=== PATIENT | male | born 1950 | race Caucasian/White ===

== ENCOUNTER 2017-10-28 00:05 | Emergency (ER) | payer MEDICARE, MEDICAID ==
[~2017-10-28] VITALS: Ht 180.3 cm; Wt 78.0 kg
[~2017-10-28 00:05] MED LIST: AMAN100C16 MT; ASCO-339 MT; ASPI-1158 MT; BENZ1TAB7 MT; CARB1TAB5 PO; FERR324T4 MT; METF500T6 PO; QUET25TA MT; [UNRECOGNIZED DRUG - CODE] MT
[2017-10-28 02:26] LABS: CHLORIDE 97 mEq/L (98-107); HEMOGLOBIN. 12.5 g/dL (14.0-18.0); MEAN CORPUSCULAR HEMOGLOBIN 27.9 pg (28.0-32.0); MEAN CORPUSCULAR VOLUME 84.9 fL (80.0-94.0); MEAN PLATELET VOLUME 10.6 fl (7.4-10.4); PLATELET 202 x1000/uL (130-400); RED BLOOD CELL COUNT 4.47 mill/uL (4.7-6.1); RED CELL DISTRIBUTION WIDTH 17.8 % (11.6-14.6)
[2017-10-28 02:30] LABS: ETHANOL BLOOD < 10 mg/dL; INR 1.1; PROTHROMBIN TIME 11.2 sec (9.1-11.1)
[2017-10-28 03:28] LABS: CLARITY URINE CLEAR (CLEAR); COLOR URINE DARK YELLOW (YELLOW); KETONES URINE TRACE (NEGATIVE); LEUKOCYTE ESTERASE URINE NEGATIVE (NEGATIVE); NITRITE URINE NEGATIVE (NEGATIVE); OCCULT BLOOD URINE NEGATIVE (NEGATIVE); PROTEIN URINE NEGATIVE (NEGATIVE); SPECIFIC GRAVITY URINE 1.012 (1.005-1.030); UROBILINOGEN URINE 0.2 E.U./dL (0.2-1.0)
[2017-10-28 03:44] LABS: *AMPHETAMINES SCREEN URINE NEGATIVE (NEGATIVE); *BARBITURATES SCREEN URINE NEGATIVE (NEGATIVE); *BENZODIAZEPINES SCREEN URINE NEGATIVE (NEGATIVE)
[2017-10-28 03:45] LABS: *COCAINE SCREEN URINE NEGATIVE (NEGATIVE); CANNABINOID URINE SCREEN NEGATIVE (NEGATIVE); OPIATES URINE SCREEN NEGATIVE (NEGATIVE); PHENCYCLIDINE URINE SCREEN NEGATIVE (NEGATIVE)
[2017-10-28 03:48] LABS: METHADONE URINE SCREEN NEGATIVE (NEGATIVE)
[2017-10-28 04:50] LABS: PLATELET ESTIMATE NORMAL
[2017-10-28] MEDS: ENTACAPONE 200MG TABLET PO SCH ×3 (06:47→14:03)
[2017-10-28] MEDS: CARBIDOPA/LEVODOPA 25/100MG TABLET PO SCH ×3 (06:48→14:04)
[2017-10-28 14:36] VITALS: BP 128/67
== END 2017-10-28 14:44 | disposition home or self-care (01) ==
LOC: ER 00:05
DX: T42.4X1A Poisoning by benzodiazepines, accidental (unintentional), initial encounter (principal); R45.1 Restlessness and agitation; D72.829 Elevated white blood cell count, unspecified; G20 Parkinson's disease; E11.9 Type 2 diabetes mellitus without complications; Z88.6 Allergy status to analgesic agent; Z98.890 Other specified postprocedural states; Y92.128 Other place in nursing home as the place of occurrence of the external cause
CPT/HCPCS: 36415; 80053; 80305; 80307; 80329; 81003; 83690; 85025; 85610; 85730; 93005; 99285; G0482

== ENCOUNTER 2017-12-10 14:07 | Inpatient (IN) | payer MEDICARE, MEDICAID ==
[~2017-12-10] VITALS: Ht 180.3 cm; Wt 81.6 kg
[~2017-12-10 14:07] MED LIST changes: +METF-414 PO; -METF500T6 PO
[2017-12-10] MEDS ORDERED: CARBIDOPA/LEVODOPA 25/100MG TABLET PO ONE (15:30)
[2017-12-10] MEDS ORDERED: ENTACAPONE 200MG TABLET PO ONE ×2 (15:30→19:45)
[2017-12-10] MEDS ORDERED: ONDANSETRON HCL 4MG/2ML INJ IV STA (15:44)
[2017-12-10 15:57] LABS: HEMATOCRIT. 35.8 % (42.0-52.0); HEMOGLOBIN. 11.6 g/dL (14.0-18.0); MEAN CORPUSCULAR HEMOGLOBIN 27.8 pg (28.0-32.0); MEAN CORPUSCULAR VOLUME 86.3 fL (80.0-94.0); MEAN PLATELET VOLUME 11.2 fl (7.4-10.4); PLATELET 195 x1000/uL (130-400); RED BLOOD CELL COUNT 4.15 mill/uL (4.7-6.1); RED CELL DISTRIBUTION WIDTH 15.7 % (11.6-14.6)
[2017-12-10 16:01] LABS: CHLORIDE 102 mEq/L (98-107)
[2017-12-10 16:23] LABS: PLATELET ESTIMATE NORMAL
[2017-12-10] MEDS ORDERED: SODIUM CHLORIDE 0.9% 1,000 ML IV ONE (17:43)
[2017-12-10] MEDS ORDERED: ONDANSETRON HCL 4MG/2ML INJ IV ONE (17:45)
[2017-12-10] MEDS ORDERED: CARBIDOPA/LEVODOPA 10/100MG TABLET PO ONE ×2 (19:45→20:15)
[2017-12-10 23:12] VITALS: BP 128/66
[2017-12-10 23:30] VITALS: BP 128/66
[2017-12-11] MEDS ORDERED: ONDANSETRON HCL 4MG/2ML INJ IV PRN (01:15)
[2017-12-11] MEDS ORDERED: CLONIDINE 0.1MG TABLET PO PRN (01:15)
[2017-12-11] MEDS ORDERED: GUAIFENESIN 200MG/10ML SUGAR FREE UDC PO PRN (01:15)
[2017-12-11] MEDS ORDERED: LORAZEPAM 0.5MG TABLET PO PRN (01:15)
[2017-12-11] MEDS ORDERED: MAGNESIUM/ALUMINUM HYDROXIDE/SIMETHICONE 30ML UDC PO PRN (01:15)
[2017-12-11] MEDS ORDERED: ACETAMINOPHEN 325MG TABLET PO PRN (01:15)
[2017-12-11 04:00] VITALS: BP 142/92
[2017-12-11] MEDS: CARBIDOPA/LEVODOPA 25/100MG TABLET CR PO SCH ×6 (04:07→21:14)
[2017-12-11] MEDS: ENTACAPONE 200MG TABLET PO SCH ×6 (04:07→21:20)
[2017-12-11] MEDS: SODIUM CHLORIDE 0.9% INJ 3ML FLUSH IVF SCH ×3 (04:08→20:12)
[2017-12-11 08:00] VITALS: BP 153/61
[2017-12-11] MEDS: FAMOTIDINE 20MG TABLET PO SCH ×2 (09:57→20:12)
[2017-12-11] MEDS: ENOXAPARIN 40MG/0.4ML SYR SUBCUT SCH (09:58)
[2017-12-11] MEDS ORDERED: INFLUENZA VIRUS VACCINE(AFLURIA) 0.5ML SYR IM ONE (10:00)
[2017-12-11 12:00] VITALS: BP 133/56
[2017-12-11] MEDS ORDERED: CARVEDILOL 6.25 MG TABLET PO NR (13:15)
[2017-12-11 16:00] VITALS: BP 133/78
[2017-12-11] MEDS: NYSTATIN POWDER 15GM TOP SCH ×2 (16:56→17:00)
[2017-12-11 19:34] VITALS: BP 112/58
[2017-12-11] MEDS: CARVEDILOL 6.25 MG TABLET PO SCH (20:12)
[2017-12-11] MEDS ORDERED: QUETIAPINE FUMARATE 25MG TABLET PO SCH (21:00)
[2017-12-11 23:28] VITALS: BP 122/65
[2017-12-12] MEDS: CARBIDOPA/LEVODOPA 25/100MG TABLET CR PO SCH ×4 (04:22→14:46)
[2017-12-12] MEDS: ENTACAPONE 200MG TABLET PO SCH ×4 (04:22→14:46)
[2017-12-12 04:36] VITALS: BP 154/76
[2017-12-12] MEDS: SODIUM CHLORIDE 0.9% INJ 3ML FLUSH IVF SCH (05:51)
[2017-12-12 07:06] LABS: HEMATOCRIT. 34.6 % (42.0-52.0); MEAN CORPUSCULAR HEMOGLOBIN 27.5 pg (28.0-32.0); MEAN CORPUSCULAR VOLUME 86.3 fL (80.0-94.0); MEAN PLATELET VOLUME 11.7 fl (7.4-10.4); PLATELET 179 x1000/uL (130-400); RED CELL DISTRIBUTION WIDTH 15.5 % (11.6-14.6)
[2017-12-12 07:17] LABS: CHLORIDE 103 mEq/L (98-107)
[2017-12-12] MEDS: CARVEDILOL 6.25 MG TABLET PO SCH (08:51)
[2017-12-12] MEDS: FAMOTIDINE 20MG TABLET PO SCH (08:51)
[2017-12-12] MEDS: ENOXAPARIN 40MG/0.4ML SYR SUBCUT SCH (08:52)
[2017-12-12] MEDS: NYSTATIN POWDER 15GM TOP SCH (08:52)
[2017-12-12] MEDS ORDERED: AMLODIPINE 5MG TABLET PO SCH (09:00)
[2017-12-12] MEDS: BLOOD SUGAR DIAGNOSTIC STRIP TEST SCH ×2 (09:12→12:20)
[2017-12-12] MEDS: INSULIN LISPRO 100 UNITS/ML SUBCUT SCH ×2 (09:13→15:00)
[2017-12-12] MEDS ORDERED: DEXTROSE 50% WATER 50ML SYRINGE IV PRN (09:15)
[2017-12-12 12:00] VITALS: BP 115/96
[2017-12-12 15:53] VITALS: BP 115/61
[2017-12-12 16:00] VITALS: BP 124/56
[2017-12-12 16:21] LABS: PLATELET ESTIMATE NORMAL
== END 2017-12-12 18:55 | disposition home or self-care (01) | DRG 206 ==
LOC: ER 14:07 → 6WST 19:27 → EDBEDREQ 19:28 → EDBEDREQTM 19:28 → ENRESERV 21:30
PROVIDERS: ADMIT Internal Medicine; ATTEND Internal Medicine
PROC: 0HDMXZZ Extraction of Right Foot Skin, External Approach (ICD-10-PCS; principal; 2017-12-11)
DX: M94.0 Chondrocostal junction syndrome [Tietze] (principal); I50.20 Unspecified systolic (congestive) heart failure; E11.621 Type 2 diabetes mellitus with foot ulcer; I11.0 Hypertensive heart disease with heart failure; G20 Parkinson's disease; I25.10 Atherosclerotic heart disease of native coronary artery without angina pectoris; M19.90 Unspecified osteoarthritis, unspecified site; B35.9 Dermatophytosis, unspecified; L84 Corns and callosities; L97.529 Non-pressure chronic ulcer of other part of left foot with unspecified severity; M20.40 Other hammer toe(s) (acquired), unspecified foot; L57.0 Actinic keratosis; Z82.49 Family history of ischemic heart disease and other diseases of the circulatory system; I25.2 Old myocardial infarction; Z79.899 Other long term (current) drug therapy; Z85.038 Personal history of other malignant neoplasm of large intestine; Z83.3 Family history of diabetes mellitus; Z86.73 Personal history of transient ischemic attack (TIA), and cerebral infarction without residual deficits; Z90.49 Acquired absence of other specified parts of digestive tract; Z95.1 Presence of aortocoronary bypass graft; Z95.5 Presence of coronary angioplasty implant and graft; Z79.84 Long term (current) use of oral hypoglycemic drugs; Z79.82 Long term (current) use of aspirin
CPT/HCPCS: 36415; 71045; 74176; 80048; 82962; 84134; 84484; 90686; 93005; 96361; 96374; 96376; 99285; J1650; J1815; J2405; J7030

== ENCOUNTER 2018-03-16 02:29 | Inpatient (IN) | payer MEDICARE, MEDICAID ==
[~2018-03-16] VITALS: Ht 180.3 cm; Wt 76.2 kg
[2018-03-16] MEDS ORDERED: ASPIRIN 81MG TABLET PO ONE (03:45)
[2018-03-16] MEDS ORDERED: NITROGLYCERIN 0.4MG TABLET SL SL PRN (03:45)
[2018-03-16 04:53] LABS: HEMATOCRIT. 30.6 % (42.0-52.0); HEMOGLOBIN. 9.4 g/dL (14.0-18.0); MEAN CORPUSCULAR HEMOGLOBIN 24.4 pg (28.0-32.0); MEAN CORPUSCULAR VOLUME 79.5 fL (80.0-94.0); PLATELET 199 x1000/uL (130-400); RED BLOOD CELL COUNT 3.85 mill/uL (4.7-6.1); RED CELL DISTRIBUTION WIDTH 17.8 % (11.6-14.6)
[2018-03-16] MEDS ORDERED: ENTACAPONE 200MG TABLET PO ONE (05:00)
[2018-03-16] MEDS ORDERED: CARBIDOPA/LEVODOPA 10/100MG TABLET PO ONE (05:00)
[2018-03-16 05:01] LABS: CHLORIDE 106 mEq/L (98-107)
[2018-03-16 05:08] LABS: *AMPHETAMINES SCREEN URINE NEGATIVE (NEGATIVE); *BARBITURATES SCREEN URINE NEGATIVE (NEGATIVE); *BENZODIAZEPINES SCREEN URINE NEGATIVE (NEGATIVE); *COCAINE SCREEN URINE NEGATIVE (NEGATIVE); METHADONE URINE SCREEN NEGATIVE (NEGATIVE); OPIATES URINE SCREEN NEGATIVE (NEGATIVE); PHENCYCLIDINE URINE SCREEN NEGATIVE (NEGATIVE)
[2018-03-16 05:09] LABS: CANNABINOID URINE SCREEN NEGATIVE (NEGATIVE)
[2018-03-16 05:30] LABS: D-DIMER 0.7 mg/L FEU (<0.50); INR 1.1; PARTIAL THROMBOPLASTIN TIME 29.1 sec (23.4-31.0); PROTHROMBIN TIME 10.6 sec (9.1-11.1)
[2018-03-16] MEDS ORDERED: CARBIDOPA/LEVODOPA 25/100MG TABLET PO NR (05:30)
[2018-03-16] MEDS ORDERED: IOHEXOL-350 100 ML BOTTLE ONE (07:00)
[2018-03-16 07:13] LABS: PLATELET ESTIMATE NORMAL
[2018-03-16 09:33] VITALS: BP 122/51
[2018-03-16] MEDS ORDERED: MAGNESIUM/ALUMINUM HYDROXIDE/SIMETHICONE 30ML UDC PO PRN (10:15)
[2018-03-16] MEDS ORDERED: DEXTROSE 50% WATER 50ML SYRINGE IV PRN (10:15)
[2018-03-16] MEDS ORDERED: DIPHENHYDRAMINE 50MG/ML VIAL IV PRN (10:15)
[2018-03-16] MEDS ORDERED: ONDANSETRON HCL 4MG/2ML INJ IV PRN (10:15)
[2018-03-16] MEDS ORDERED: CLONIDINE 0.1MG TABLET PO PRN (10:15)
[2018-03-16] MEDS ORDERED: GUAIFENESIN 200MG/10ML SUGAR FREE UDC PO PRN (10:15)
[2018-03-16] MEDS: CARBIDOPA/LEVODOPA 25/100MG TABLET PO SCH ×4 (10:44→20:42)
[2018-03-16] MEDS: ASCORBIC ACID 500 MG TABLET PO SCH ×2 (10:55→20:42)
[2018-03-16 12:00] VITALS: BP 98/42
[2018-03-16] MEDS: INSULIN LISPRO 100 UNITS/ML SUBCUT SCH ×3 (12:23→21:01)
[2018-03-16] MEDS: ENTACAPONE 200MG TABLET PO SCH ×4 (12:38→20:42)
[2018-03-16] MEDS: BLOOD SUGAR DIAGNOSTIC STRIP TEST SCH ×3 (12:38→20:57)
[2018-03-16] MEDS: SODIUM CHLORIDE 0.9% INJ 3ML FLUSH IVF SCH ×2 (13:13→21:02)
[2018-03-16 16:00] VITALS: BP 152/84
[2018-03-16] MEDS ORDERED: BENZTROPINE MESYLATE 1MG/1ML 2ML AMP IM SCH (17:00)
[2018-03-16] MEDS: METFORMIN HCL 500MG TABLET PO SCH ×2 (18:13→18:16)
[2018-03-16 20:00] VITALS: BP 117/32
[2018-03-16] MEDS: QUETIAPINE FUMARATE 25MG TABLET PO SCH (20:41)
[2018-03-16] MEDS: BENZTROPINE MESYLATE 1MG TABLET PO SCH (20:42)
[2018-03-16] MEDS ORDERED: NON FORMULARY PATIENT HOME MED PO SCH (21:30)
[2018-03-16] MEDS: AMANTADINE HCL 100 MG CAPSULE PO SCH (22:29)
[2018-03-17] VITALS (7 sets, daily range): BP systolic 100–133; BP diastolic 38–66
[2018-03-17] MEDS: CARBIDOPA/LEVODOPA 25/100MG TABLET PO SCH ×8 (00:13→21:01)
[2018-03-17] MEDS: ENTACAPONE 200MG TABLET PO SCH ×8 (00:17→21:01)
[2018-03-17] MEDS: SODIUM CHLORIDE 0.9% INJ 3ML FLUSH IVF SCH ×3 (06:03→22:00)
[2018-03-17] MEDS: BLOOD SUGAR DIAGNOSTIC STRIP TEST SCH ×4 (06:03→21:00)
[2018-03-17 08:03] LABS: HEMATOCRIT. 31.8 % (42.0-52.0); HEMOGLOBIN. 9.7 g/dL (14.0-18.0); MEAN CORPUSCULAR HEMOGLOBIN 24.1 pg (28.0-32.0); MEAN CORPUSCULAR VOLUME 78.8 fL (80.0-94.0); MEAN PLATELET VOLUME 11.7 fl (7.4-10.4); PLATELET 235 x1000/uL (130-400); RED BLOOD CELL COUNT 4.04 mill/uL (4.7-6.1); RED CELL DISTRIBUTION WIDTH 17.3 % (11.6-14.6)
[2018-03-17 08:17] LABS: CHLORIDE 103 mEq/L (98-107)
[2018-03-17] MEDS: AMANTADINE HCL 100 MG CAPSULE PO SCH ×3 (09:00→21:29)
[2018-03-17 10:04] LABS: CREATINE KINASE 49 IU/L (39-308)
[2018-03-17 10:05] LABS: CREATINE KINASE MB FRACTION 1.7 ng/mL (0.5-3.6)
[2018-03-17] MEDS: BENZTROPINE MESYLATE 1MG TABLET PO SCH ×2 (10:18→18:04)
[2018-03-17] MEDS: ASCORBIC ACID 500 MG TABLET PO SCH ×2 (10:18→21:02)
[2018-03-17] MEDS: ASPIRIN 81MG EC TABLET PO SCH (10:18)
[2018-03-17] MEDS: INSULIN LISPRO 100 UNITS/ML SUBCUT SCH ×4 (12:59→22:10)
[2018-03-17] MEDS ORDERED: REGADENOSON 0.4 MG/5 ML IV ONE (14:00)
[2018-03-17 16:15] LABS: PLATELET ESTIMATE NORMAL
[2018-03-17] MEDS: METFORMIN HCL 500MG TABLET PO SCH (17:50)
[2018-03-17] MEDS: ENOXAPARIN 80MG/0.8ML SYR SUBCUT SCH (21:03)
[2018-03-17] MEDS: QUETIAPINE FUMARATE 25MG TABLET PO SCH (21:14)
[2018-03-18 00:32] VITALS: BP 141/67
[2018-03-18] MEDS: ENTACAPONE 200MG TABLET PO SCH ×7 (03:08→17:45)
[2018-03-18] MEDS: CARBIDOPA/LEVODOPA 25/100MG TABLET PO SCH ×7 (03:09→17:45)
[2018-03-18 04:00] VITALS: BP 106/59
[2018-03-18] MEDS: SODIUM CHLORIDE 0.9% INJ 3ML FLUSH IVF SCH ×2 (06:00→13:21)
[2018-03-18] MEDS: BLOOD SUGAR DIAGNOSTIC STRIP TEST SCH ×3 (06:26→17:37)
[2018-03-18 07:14] LABS: HEMOGLOBIN. 9.6 g/dL (14.0-18.0); MEAN CORPUSCULAR HEMOGLOBIN 24.2 pg (28.0-32.0); MEAN CORPUSCULAR VOLUME 78.1 fL (80.0-94.0); MEAN PLATELET VOLUME 11.1 fl (7.4-10.4); PLATELET 232 x1000/uL (130-400); RED BLOOD CELL COUNT 3.97 mill/uL (4.7-6.1); RED CELL DISTRIBUTION WIDTH 16.9 % (11.6-14.6)
[2018-03-18] MEDS: METFORMIN HCL 500MG TABLET PO SCH ×2 (07:50→17:50)
[2018-03-18 08:00] VITALS: BP 105/55
[2018-03-18] MEDS ORDERED: REGADENOSON 0.4 MG/5 ML IV ONE (08:31)
[2018-03-18] MEDS: ENOXAPARIN 80MG/0.8ML SYR SUBCUT SCH ×2 (09:00→11:27)
[2018-03-18] MEDS: ASPIRIN 81MG EC TABLET PO SCH ×2 (09:00→11:26)
[2018-03-18] MEDS: BENZTROPINE MESYLATE 1MG TABLET PO SCH ×3 (09:00→17:45)
[2018-03-18] MEDS: ASCORBIC ACID 500 MG TABLET PO SCH ×2 (09:00→11:26)
[2018-03-18] MEDS: AMANTADINE HCL 100 MG CAPSULE PO SCH ×3 (11:37→18:36)
[2018-03-18 12:00] VITALS: BP 119/59
[2018-03-18 12:03] LABS: CHLORIDE 103 mEq/L (98-107)
[2018-03-18] MEDS: INSULIN LISPRO 100 UNITS/ML SUBCUT SCH ×2 (12:05→17:37)
[2018-03-18 16:00] VITALS: BP 122/60
[2018-03-18 18:57] LABS: PLATELET ESTIMATE NORMAL
[2018-03-18] MEDS ORDERED: ENOXAPARIN 80MG/0.8ML SYR SUBCUT SCH (21:00)
== END 2018-03-18 20:35 | disposition home or self-care (01) | DRG 206 ==
LOC: ER 02:29 → 7WST 05:49 → EDBEDREQ 05:50 → ENRESERV 07:57 → 6WST 03-17 07:54
PROVIDERS: ADMIT Internal Medicine; ATTEND Internal Medicine
DX: M94.0 Chondrocostal junction syndrome [Tietze] (principal); L97.528 Non-pressure chronic ulcer of other part of left foot with other specified severity; E44.0 Moderate protein-calorie malnutrition; I25.10 Atherosclerotic heart disease of native coronary artery without angina pectoris; I50.9 Heart failure, unspecified; G20 Parkinson's disease; I25.2 Old myocardial infarction; Z85.038 Personal history of other malignant neoplasm of large intestine; E11.9 Type 2 diabetes mellitus without complications; E78.00 Pure hypercholesterolemia, unspecified; I11.0 Hypertensive heart disease with heart failure; Z86.73 Personal history of transient ischemic attack (TIA), and cerebral infarction without residual deficits; G25.0 Essential tremor; I25.5 Ischemic cardiomyopathy; E11.42 Type 2 diabetes mellitus with diabetic polyneuropathy; E11.621 Type 2 diabetes mellitus with foot ulcer; Z86.718 Personal history of other venous thrombosis and embolism; Z83.3 Family history of diabetes mellitus; L08.9 Local infection of the skin and subcutaneous tissue, unspecified; M20.42 Other hammer toe(s) (acquired), left foot; Z88.5 Allergy status to narcotic agent; Z95.5 Presence of coronary angioplasty implant and graft; Z90.49 Acquired absence of other specified parts of digestive tract; Z79.84 Long term (current) use of oral hypoglycemic drugs
CPT/HCPCS: 36415; 71045; 71275; 73660; 78452; 80048; 80305; 82550; 82553; 82962; 83735; 83880; 84443; 84484; 85379; 93005; 93017; 93306; 93923; 93970; 96374; 99285; A9500; J0515; J1650; J1815; J2785; Q9967

== ENCOUNTER 2018-06-11 20:21 | Inpatient (IN) | payer MEDICARE, MEDICAID ==
[~2018-06-11] VITALS: Ht 180.3 cm; Wt 78.9 kg
[2018-06-11] MEDS ORDERED: ASPIRIN 81MG TABLET PO ONE (21:15)
[2018-06-11 21:53] LABS: HEMATOCRIT. 36.5 % (42.0-52.0); HEMOGLOBIN. 11.4 g/dL (14.0-18.0); MEAN CORPUSCULAR HEMOGLOBIN 24.8 pg (28.0-32.0); MEAN CORPUSCULAR VOLUME 79.4 fL (80.0-94.0); MEAN PLATELET VOLUME 10.5 fl (7.4-10.4); PLATELET 188 x1000/uL (130-400); RED BLOOD CELL COUNT 4.59 mill/uL (4.7-6.1); RED CELL DISTRIBUTION WIDTH 18.6 % (11.6-14.6)
[2018-06-11 21:55] LABS: CHLORIDE 104 mEq/L (98-107)
[2018-06-11 21:56] LABS: INR 1.1; PROTHROMBIN TIME 10.8 sec (9.6-11.0)
[2018-06-11] MEDS ORDERED: ENTACAPONE 200MG TABLET PO ONE (22:00)
[2018-06-11] MEDS ORDERED: CARBIDOPA/LEVODOPA 25/100MG TABLET PO ONE ×2 (22:00→22:30)
[2018-06-11] MEDS ORDERED: BENZTROPINE MESYLATE 1MG TABLET PO ONE (22:00)
[2018-06-11 22:08] LABS: PLATELET ESTIMATE NORMAL
[2018-06-12] VITALS (9 sets, daily range): BP systolic 113–145; BP diastolic 61–101
[2018-06-12] MEDS ORDERED: LORAZEPAM 2MG/ML CPJ IV PRN
[2018-06-12] MEDS ORDERED: DIPHENHYDRAMINE 50MG/ML VIAL IV PRN
[2018-06-12] MEDS ORDERED: MAGNESIUM/ALUMINUM HYDROXIDE/SIMETHICONE 30ML UDC PO PRN
[2018-06-12] MEDS ORDERED: IPRATROPIUM/ALBUTEROL 0.5-3(2.5)MG/3ML NEB INH PRN
[2018-06-12] MEDS ORDERED: CLONIDINE 0.1MG TABLET PO PRN
[2018-06-12] MEDS ORDERED: DEXTROSE 50% WATER 50ML SYRINGE IV PRN
[2018-06-12] MEDS ORDERED: SODIUM CHLORIDE 0.9% 1,000 ML IV SCH (01:00)
[2018-06-12] MEDS: CARBIDOPA/LEVODOPA 10/100MG TABLET PO SCH ×7 (02:00→22:52)
[2018-06-12] MEDS: ENTACAPONE 200MG TABLET PO SCH ×7 (02:00→22:53)
[2018-06-12] MEDS: PANTOPRAZOLE SODIUM 40 MG/VIAL IV SCH ×2 (05:19→16:55)
[2018-06-12] MEDS: BLOOD SUGAR DIAGNOSTIC STRIP TEST SCH ×4 (06:37→20:53)
[2018-06-12] MEDS: INSULIN LISPRO 100 UNITS/ML SUBCUT SCH ×4 (06:48→20:56)
[2018-06-12 07:30] LABS: HEMATOCRIT 35.8 % (42.0-52.0); HEMOGLOBIN 10.9 g/dL (14.0-18.0); MEAN CORPUSCULAR HEMOGLOBIN 24.5 pg (28.0-32.0); MEAN CORPUSCULAR VOLUME 80.5 fL (80.0-94.0); PLATELET 165 x1000/uL (130-400); RED BLOOD CELL COUNT 4.45 mill/uL (4.7-6.1); RED CELL DISTRIBUTION WIDTH 18.6 % (11.6-14.6)
[2018-06-12] MEDS: BENZTROPINE MESYLATE 1MG TABLET PO SCH ×2 (08:17→20:57)
[2018-06-12] MEDS: SODIUM CHLORIDE 0.45% 1,000 ML IV SCH ×2 (10:35→22:54)
[2018-06-12] MEDS ORDERED: PNEUMOCOCCAL 23-VAL P-SAC VAC 0.5 ML IM ONE (12:00)
[2018-06-12] MEDS ORDERED: INFLUENZA VIRUS VACCINE(AFLURIA) 0.5ML SYR IM ONE (12:00)
[2018-06-12] MEDS ORDERED: IODIXANOL 320MG/ML 100 ML BOTTLE IV ONE (13:44)
[2018-06-12] MEDS ORDERED: LIDOCAINE HCL 1% 20ML VIAL (Pyxis) INJ ONE (13:46)
[2018-06-12] MEDS ORDERED: MIDAZOLAM HCL 2 MG/2 ML VIAL ONE (14:03)
[2018-06-12] MEDS ORDERED: FENTANYL CITRATE/PF 50MCG/ML 2ML VIAL ONE (14:03)
[2018-06-12] MEDS ORDERED: ACETAMINOPHEN 325MG TABLET PO PRN (15:00)
[2018-06-12] MEDS ORDERED: ATROPINE SULFATE 1MG/10ML SYR IV PRN (15:00)
[2018-06-12] MEDS ORDERED: ONDANSETRON HCL 4MG/2ML INJ IV PRN ×2 (15:00)
[2018-06-12] MEDS: NEOMY SULF/BACITRAC ZN/POLY OINT 28GM TOP SCH (19:42)
[2018-06-12] MEDS ORDERED: QUETIAPINE FUMARATE 25MG TABLET PO SCH (21:00)
[2018-06-13] VITALS (11 sets, daily range): BP systolic 110–169; BP diastolic 42–105
[2018-06-13] MEDS: ENTACAPONE 200MG TABLET PO SCH ×6 (02:42→17:49)
[2018-06-13] MEDS: CARBIDOPA/LEVODOPA 10/100MG TABLET PO SCH ×6 (02:42→17:49)
[2018-06-13] MEDS: PANTOPRAZOLE SODIUM 40 MG/VIAL IV SCH (05:10)
[2018-06-13] MEDS: BLOOD SUGAR DIAGNOSTIC STRIP TEST SCH ×3 (07:09→17:49)
[2018-06-13] MEDS: BENZTROPINE MESYLATE 1MG TABLET PO SCH (08:08)
[2018-06-13] MEDS: INSULIN LISPRO 100 UNITS/ML SUBCUT SCH ×3 (08:09→17:50)
[2018-06-13] MEDS: NEOMY SULF/BACITRAC ZN/POLY OINT 28GM TOP SCH (09:53)
[2018-06-13 10:29] LABS: HEMATOCRIT. 34.3 % (42.0-52.0); HEMOGLOBIN. 10.7 g/dL (14.0-18.0); MEAN CORPUSCULAR HEMOGLOBIN 24.9 pg (28.0-32.0); MEAN CORPUSCULAR VOLUME 79.9 fL (80.0-94.0); MEAN PLATELET VOLUME 11.8 fl (7.4-10.4); PLATELET 171 x1000/uL (130-400); RED CELL DISTRIBUTION WIDTH 18.6 % (11.6-14.6)
[2018-06-13 10:47] LABS: CHLORIDE 104 mEq/L (98-107)
[2018-06-13 11:01] LABS: PLATELET ESTIMATE NORMAL
[2018-06-13] MEDS: SODIUM CHLORIDE 0.45% 1,000 ML IV SCH (12:05)
[2018-06-13] MEDS ORDERED: PANTOPRAZOLE 40MG DR TABLET PO SCH (17:30)
[2018-06-13] MEDS ORDERED: METOPROLOL TARTRATE 25MG TABLET PO SCH (21:00)
[2018-06-13] MEDS ORDERED: ATORVASTATIN CALCIUM 40MG TABLET PO SCH (21:00)
[2018-06-14] MEDS ORDERED: FAMOTIDINE 20MG TABLET PO SCH (09:00)
== END 2018-06-13 19:26 | disposition home health service (06) | DRG 287 ==
LOC: ER 20:21 → EDBEDREQTM 22:41 → EDBEDREQ 22:41 → ENRESERV 23:41 → 8WST 06-12 00:39 → 3WST 06-12 15:27
PROVIDERS: ADMIT Internal Medicine; ATTEND Internal Medicine
PROC: 4A023N7 Measurement of Cardiac Sampling and Pressure, Left Heart, Percutaneous Approach (ICD-10-PCS; principal; 2018-06-12)
PROC: B2111ZZ Fluoroscopy of Multiple Coronary Arteries using Low Osmolar Contrast (ICD-10-PCS; 2018-06-12)
PROC: B2151ZZ Fluoroscopy of Left Heart using Low Osmolar Contrast (ICD-10-PCS; 2018-06-12)
DX: I25.110 Atherosclerotic heart disease of native coronary artery with unstable angina pectoris (principal); E11.42 Type 2 diabetes mellitus with diabetic polyneuropathy; E11.621 Type 2 diabetes mellitus with foot ulcer; E78.5 Hyperlipidemia, unspecified; G20 Parkinson's disease; I11.9 Hypertensive heart disease without heart failure; K52.9 Noninfective gastroenteritis and colitis, unspecified; L97.529 Non-pressure chronic ulcer of other part of left foot with unspecified severity; M20.42 Other hammer toe(s) (acquired), left foot; M20.41 Other hammer toe(s) (acquired), right foot; I25.2 Old myocardial infarction; Z79.4 Long term (current) use of insulin; Z79.82 Long term (current) use of aspirin; Z85.038 Personal history of other malignant neoplasm of large intestine; Z86.73 Personal history of transient ischemic attack (TIA), and cerebral infarction without residual deficits; Z90.49 Acquired absence of other specified parts of digestive tract; Z95.5 Presence of coronary angioplasty implant and graft; Z88.8 Allergy status to other drugs, medicaments and biological substances; Z79.84 Long term (current) use of oral hypoglycemic drugs; Z79.899 Other long term (current) drug therapy; Z82.49 Family history of ischemic heart disease and other diseases of the circulatory system; Z83.3 Family history of diabetes mellitus
CPT/HCPCS: 36415; 71045; 80048; 82962; 83036; 83735; 83880; 84484; 85027; 90686; 90732; 93005; 93458; 93970; 96374; 99285; C1760; C1769; C1887; C1893; C9113; J1644; J1815; J2060; J2250; J2405; J3010; J3490; J7040; Q9967

== ENCOUNTER 2018-09-07 21:14 | Inpatient (IN) | payer MEDICARE, MEDICAID ==
[~2018-09-07] VITALS: Ht 182.9 cm; Wt 75.3 kg
[2018-09-07 22:49] LABS: HEMATOCRIT. 30.8 % (42.0-52.0); HEMOGLOBIN. 9.4 g/dL (14.0-18.0); MEAN CORPUSCULAR HEMOGLOBIN 24.8 pg (28.0-32.0); MEAN CORPUSCULAR VOLUME 80.9 fL (80.0-94.0); MEAN PLATELET VOLUME 11.7 fl (7.4-10.4); PLATELET 223 x1000/uL (130-400); RED BLOOD CELL COUNT 3.81 mill/uL (4.7-6.1); RED CELL DISTRIBUTION WIDTH 17.4 % (11.6-14.6)
[2018-09-07 22:54] LABS: CHLORIDE 105 mEq/L (98-107)
[2018-09-07 22:57] LABS: PARTIAL THROMBOPLASTIN TIME 21.9 sec (23.4-31.0); PROTHROMBIN TIME 10.7 sec (9.6-11.0)
[2018-09-08 00:23] LABS: CLARITY URINE CLEAR (CLEAR); COLOR URINE YELLOW (YELLOW); KETONES URINE NEGATIVE (NEGATIVE); LEUKOCYTE ESTERASE URINE NEGATIVE (NEGATIVE); NITRITE URINE NEGATIVE (NEGATIVE); OCCULT BLOOD URINE 3+ (NEGATIVE); PROTEIN URINE NEGATIVE (NEGATIVE); SPECIFIC GRAVITY URINE 1.016 (1.005-1.030); UROBILINOGEN URINE 0.2 E.U./dL (0.2-1.0)
[2018-09-08 04:15] LABS: PLATELET ESTIMATE NORMAL
[2018-09-08 09:50] VITALS: BP 128/73
[2018-09-08] MEDS ORDERED: IBUP-2030 MT (10:30)
[2018-09-08] MEDS ORDERED: METO25TA6 MT (10:30)
[2018-09-08] MEDS ORDERED: ATOR40TA70 MT (10:30)
[2018-09-08] MEDS ORDERED: OMEP20TA2 MT (10:33)
[2018-09-08] MEDS ORDERED: FOLI-43 MT (10:33)
[2018-09-08] MEDS ORDERED: DEXTROSE 50% WATER 50ML SYRINGE IV PRN (11:00)
[2018-09-08] MEDS ORDERED: CARBIDOPA/LEVODOPA 25/100MG TABLET CR PO SCH (11:00)
[2018-09-08] MEDS ORDERED: MEDICATION NOT ON FORMULARY EA (Ibuprofen 1 TAB) MT PRN (11:00)
[2018-09-08] MEDS ORDERED: IBUPROFEN 800MG TABLET PO PRN (11:30)
[2018-09-08 12:00] VITALS: BP 140/73
[2018-09-08] MEDS: BLOOD SUGAR DIAGNOSTIC STRIP TEST SCH ×3 (12:26→21:14)
[2018-09-08] MEDS: FERROUS SULFATE 325MG TABLET PO SCH ×2 (12:28→16:53)
[2018-09-08] MEDS: CARBIDOPA/LEVODOPA 25/100MG TABLET PO SCH ×4 (12:28→21:11)
[2018-09-08] MEDS: OMEPRAZOLE 20MG CAPSULE EXTENDED RELEASE PO SCH (12:28)
[2018-09-08] MEDS: INSULIN LISPRO 100 UNITS/ML SUBCUT SCH ×3 (12:43→21:00)
[2018-09-08] MEDS ORDERED: MAGNESIUM HYDROXIDE 400MG/5ML 30ML UDC PO PRN (15:45)
[2018-09-08 16:00] VITALS: BP 96/47
[2018-09-08] MEDS: DOCUSATE SODIUM 100MG CAPSULE PO SCH (16:53)
[2018-09-08] MEDS: BENZTROPINE MESYLATE 1MG TABLET PO SCH (16:53)
[2018-09-08] MEDS: ENOXAPARIN 40MG/0.4ML SYR SUBCUT SCH (16:54)
[2018-09-08] MEDS ORDERED: MEDICATION NOT ON FORMULARY EA (Metoprolol Tartrate 1 TAB) MT SCH (17:00)
[2018-09-08] MEDS ORDERED: FERROUS SULFATE 324 MG MT SCH (17:40)
[2018-09-08] MEDS ORDERED: METFORMIN HCL 500MG TABLET PO SCH (17:40)
[2018-09-08] MEDS ORDERED: BENZTROPINE MESYLATE MT SCH (17:40)
[2018-09-08] MEDS ORDERED: AMANTADINE HCL MT SCH (17:40)
[2018-09-08 20:00] VITALS: BP 126/61
[2018-09-08] MEDS ORDERED: QUETIAPINE FUMARATE 25MG TABLET PO SCH (21:00)
[2018-09-08] MEDS ORDERED: ATORVASTATIN CALCIUM 40MG TABLET PO SCH (21:00)
[2018-09-08] MEDS: ATORVASTATIN CALCIUM 40MG TABLET PO SCH (21:11)
[2018-09-08] MEDS: ASCORBIC ACID 500 MG TABLET PO SCH (21:13)
[2018-09-08] MEDS: QUETIAPINE FUMARATE 25MG TABLET PO SCH (21:13)
[2018-09-08] MEDS: ENTACAPONE 200MG TABLET PO SCH (21:14)
[2018-09-08] MEDS: METOPROLOL TARTRATE 25MG TABLET PO SCH (21:14)
[2018-09-09] VITALS (7 sets, daily range): BP systolic 97–125; BP diastolic 57–79
[2018-09-09] MEDS: ENTACAPONE 200MG TABLET PO SCH ×8 (00:38→21:35)
[2018-09-09] MEDS: CARBIDOPA/LEVODOPA 25/100MG TABLET PO SCH ×8 (00:38→21:34)
[2018-09-09] MEDS: BLOOD SUGAR DIAGNOSTIC STRIP TEST SCH ×4 (06:20→21:40)
[2018-09-09] MEDS: OMEPRAZOLE 20MG CAPSULE EXTENDED RELEASE PO SCH (06:23)
[2018-09-09] MEDS: METFORMIN HCL 500MG TABLET PO SCH ×2 (06:46→18:02)
[2018-09-09] MEDS: INSULIN LISPRO 100 UNITS/ML SUBCUT SCH ×4 (06:48→21:51)
[2018-09-09] MEDS: METOPROLOL TARTRATE 25MG TABLET PO SCH ×2 (09:00→21:35)
[2018-09-09] MEDS ORDERED: MEDICATION NOT ON FORMULARY EA (Omeprazole 1 TAB) MT SCH (09:00)
[2018-09-09] MEDS ORDERED: MEDICATION NOT ON FORMULARY EA (Folic Acid 1 TAB) MT SCH (09:00)
[2018-09-09] MEDS ORDERED: MEDICATION NOT ON FORMULARY EA (Aspirin (Aspirin Ec) 81 MG) MT SCH (09:00)
[2018-09-09] MEDS: ASCORBIC ACID 500 MG TABLET PO SCH ×2 (10:16→21:35)
[2018-09-09] MEDS: ASPIRIN 81MG TABLET PO SCH (10:16)
[2018-09-09] MEDS: DOCUSATE SODIUM 100MG CAPSULE PO SCH ×2 (10:16→15:59)
[2018-09-09] MEDS: FOLIC ACID 1MG TABLET PO SCH (10:17)
[2018-09-09] MEDS: BENZTROPINE MESYLATE 1MG TABLET PO SCH ×2 (10:17→15:59)
[2018-09-09] MEDS: FERROUS SULFATE 325MG TABLET PO SCH ×3 (10:28→18:02)
[2018-09-09] MEDS: ENOXAPARIN 40MG/0.4ML SYR SUBCUT SCH (15:59)
[2018-09-09] MEDS: FAMOTIDINE 20MG TABLET PO SCH (21:34)
[2018-09-09] MEDS: QUETIAPINE FUMARATE 25MG TABLET PO SCH (21:35)
[2018-09-09] MEDS: ATORVASTATIN CALCIUM 40MG TABLET PO SCH (21:35)
[2018-09-10] VITALS (8 sets, daily range): BP systolic 102–142; BP diastolic 52–77
[2018-09-10] MEDS: CARBIDOPA/LEVODOPA 25/100MG TABLET PO SCH ×8 (00:34→21:01)
[2018-09-10] MEDS: ENTACAPONE 200MG TABLET PO SCH ×8 (00:34→21:05)
[2018-09-10] MEDS: BLOOD SUGAR DIAGNOSTIC STRIP TEST SCH ×4 (05:29→21:13)
[2018-09-10] MEDS: INSULIN LISPRO 100 UNITS/ML SUBCUT SCH ×4 (05:36→21:20)
[2018-09-10] MEDS: FERROUS SULFATE 325MG TABLET PO SCH ×3 (07:40→17:17)
[2018-09-10] MEDS: METFORMIN HCL 500MG TABLET PO SCH ×2 (07:40→17:17)
[2018-09-10] MEDS: FAMOTIDINE 20MG TABLET PO SCH ×2 (09:00→21:02)
[2018-09-10] MEDS: METOPROLOL TARTRATE 25MG TABLET PO SCH ×2 (09:00→21:03)
[2018-09-10] MEDS: DOCUSATE SODIUM 100MG CAPSULE PO SCH ×2 (09:00→16:29)
[2018-09-10] MEDS: ASPIRIN 81MG TABLET PO SCH (09:00)
[2018-09-10] MEDS: ASCORBIC ACID 500 MG TABLET PO SCH ×2 (09:00→21:01)
[2018-09-10] MEDS: BENZTROPINE MESYLATE 1MG TABLET PO SCH ×2 (09:00→17:17)
[2018-09-10] MEDS: FOLIC ACID 1MG TABLET PO SCH (09:00)
[2018-09-10] MEDS ORDERED: ONDANSETRON HCL 4MG/2ML INJ IV PRN (11:45)
[2018-09-10] MEDS: ENOXAPARIN 40MG/0.4ML SYR SUBCUT SCH (17:17)
[2018-09-10] MEDS: QUETIAPINE FUMARATE 25MG TABLET PO SCH (21:01)
[2018-09-10] MEDS: ATORVASTATIN CALCIUM 40MG TABLET PO SCH (21:02)
[2018-09-11] MEDS: CARBIDOPA/LEVODOPA 25/100MG TABLET PO SCH ×7 (00:12→15:27)
[2018-09-11] MEDS: ENTACAPONE 200MG TABLET PO SCH ×6 (00:12→10:40)
[2018-09-11 04:00] VITALS: BP 136/64
[2018-09-11] MEDS: BLOOD SUGAR DIAGNOSTIC STRIP TEST SCH ×2 (06:20→12:10)
[2018-09-11] MEDS: INSULIN LISPRO 100 UNITS/ML SUBCUT SCH ×2 (06:27→12:39)
[2018-09-11] MEDS: METFORMIN HCL 500MG TABLET PO SCH (07:40)
[2018-09-11 08:00] VITALS: BP 103/53
[2018-09-11] MEDS: METOPROLOL TARTRATE 25MG TABLET PO SCH (09:00)
[2018-09-11] MEDS: DOCUSATE SODIUM 100MG CAPSULE PO SCH ×2 (09:00→17:00)
[2018-09-11] MEDS: BENZTROPINE MESYLATE 1MG TABLET PO SCH ×2 (09:54→17:00)
[2018-09-11] MEDS: FAMOTIDINE 20MG TABLET PO SCH (09:54)
[2018-09-11] MEDS: FOLIC ACID 1MG TABLET PO SCH (09:54)
[2018-09-11] MEDS: FERROUS SULFATE 325MG TABLET PO SCH ×2 (09:57→12:46)
[2018-09-11] MEDS: ASPIRIN 81MG TABLET PO SCH (09:57)
[2018-09-11] MEDS: ASCORBIC ACID 500 MG TABLET PO SCH (09:57)
[2018-09-11 12:00] VITALS: BP 121/53
[2018-09-11 16:00] VITALS: BP 126/51
[2018-09-11] MEDS: ENOXAPARIN 40MG/0.4ML SYR SUBCUT SCH (16:00)
== END 2018-09-11 17:19 | disposition home health service (06) | DRG 71 ==
LOC: ER 21:14 → 8WST 09-08 03:39 → EDBEDREQ 09-08 03:47 → EDBEDREQTM 09-08 03:47 → ENRESERV 09-08 07:40
PROVIDERS: ADMIT Internal Medicine; ATTEND Internal Medicine
DX: G93.40 Encephalopathy, unspecified (principal); C18.9 Malignant neoplasm of colon, unspecified; G20 Parkinson's disease; R53.1 Weakness; E11.9 Type 2 diabetes mellitus without complications; D72.829 Elevated white blood cell count, unspecified; D50.9 Iron deficiency anemia, unspecified; I10 Essential (primary) hypertension; R13.10 Dysphagia, unspecified; Z83.3 Family history of diabetes mellitus; I25.10 Atherosclerotic heart disease of native coronary artery without angina pectoris; F41.1 Generalized anxiety disorder; E83.51 Hypocalcemia; R26.9 Unspecified abnormalities of gait and mobility; Z90.49 Acquired absence of other specified parts of digestive tract; Z95.5 Presence of coronary angioplasty implant and graft; Z82.49 Family history of ischemic heart disease and other diseases of the circulatory system; I25.2 Old myocardial infarction; Z88.6 Allergy status to analgesic agent; Z79.82 Long term (current) use of aspirin; Z88.8 Allergy status to other drugs, medicaments and biological substances; Z79.84 Long term (current) use of oral hypoglycemic drugs
CPT/HCPCS: 36415; 71045; 82962; 83605; 83880; 84145; 84484; 92523; 92610; 93005; 97162; 97166; 99285; J1650; J1815; J2405

== ENCOUNTER 2018-11-20 03:25 | Inpatient (IN) | payer MEDICARE, MEDICAID ==
[~2018-11-20] VITALS: Ht 180.3 cm; Wt 75.1 kg
[~2018-11-20 03:25] MED LIST changes: +ATOR40TA70 MT; +FOLI-43 MT; +IBUP-2030 MT; +METO25TA6 MT; +OMEP20TA2 MT
[2018-11-20] MEDS ORDERED: SODIUM CHLORIDE 0.9% 1,000 ML IV ONE ×2 (04:27→06:50)
[2018-11-20] MEDS ORDERED: KETOROLAC 30MG/ML VIAL IV STA (04:27)
[2018-11-20] MEDS ORDERED: ONDANSETRON HCL 4MG/2ML INJ IV STA ×2 (04:46→06:50)
[2018-11-20 05:09] LABS: HEMATOCRIT. 36.6 % (42.0-52.0); HEMOGLOBIN. 12.1 g/dL (14.0-18.0); MEAN CORPUSCULAR VOLUME 82.1 fL (80.0-94.0); MEAN PLATELET VOLUME 10.7 fl (7.4-10.4); PLATELET 145 x1000/uL (130-400); RED BLOOD CELL COUNT 4.46 mill/uL (4.7-6.1)
[2018-11-20 05:17] LABS: CHLORIDE 105 mEq/L (98-107)
[2018-11-20 06:41] LABS: PLATELET ESTIMATE NORMAL
[2018-11-20 06:46] LABS: CLARITY URINE CLOUDY (CLEAR); COLOR URINE YELLOW (YELLOW); KETONES URINE NEGATIVE (NEGATIVE); LEUKOCYTE ESTERASE URINE 2+ (NEGATIVE); NITRITE URINE NEGATIVE (NEGATIVE); OCCULT BLOOD URINE NEGATIVE (NEGATIVE); PROTEIN URINE NEGATIVE (NEGATIVE); UROBILINOGEN URINE 0.2 E.U./dL (0.2-1.0)
[2018-11-20] MEDS ORDERED: CEFTRIAXONE 1 G PREMIX 50 ML IV ONE (07:00)
[2018-11-20] MEDS ORDERED: CARBIDOPA/LEVODOPA 25/100MG TABLET CR PO ONE (07:45)
[2018-11-20] MEDS ORDERED: CARBIDOPA/LEVODOPA 25/100MG TABLET PO ONE (08:30)
[2018-11-20] MEDS ORDERED: CARBIDOPA/LEVODOPA 25/100MG TABLET CR PO NR (08:45)
[2018-11-20 10:00] VITALS: BP 118/73
[2018-11-20 12:00] VITALS: BP 164/76
[2018-11-20] MEDS ORDERED: CARBIDOPA/LEVODOPA 25/100MG TABLET CR PO SCH (12:15)
[2018-11-20] MEDS: CLONIDINE 0.1MG TABLET PO PRN (13:09)
[2018-11-20] MEDS: CARBIDOPA/LEVODOPA 25/100MG TABLET PO SCH ×4 (13:09→22:50)
[2018-11-20] MEDS ORDERED: DEXTROSE 50% WATER 50ML SYRINGE IV PRN (15:45)
[2018-11-20 16:00] VITALS: BP 124/60
[2018-11-20] MEDS: ENTACAPONE 200MG TABLET PO SCH ×3 (17:00→22:50)
[2018-11-20] MEDS: BLOOD SUGAR DIAGNOSTIC STRIP TEST SCH ×2 (17:04→21:14)
[2018-11-20] MEDS: BENZTROPINE MESYLATE 1MG TABLET PO SCH (17:11)
[2018-11-20] MEDS: SODIUM CHLORIDE 0.45% 1,000 ML IV SCH (17:11)
[2018-11-20] MEDS: INSULIN LISPRO 100 UNITS/ML SUBCUT SCH ×2 (17:12→21:17)
[2018-11-20 20:00] VITALS: BP 92/47
[2018-11-20] MEDS: QUETIAPINE FUMARATE 25MG TABLET PO SCH (21:13)
[2018-11-20] MEDS: METOPROLOL TARTRATE 25MG TABLET PO SCH (21:14)
[2018-11-20] MEDS ORDERED: LORAZEPAM 1MG TABLET PO PRN (22:15)
[2018-11-20] MEDS ORDERED: DIPHENHYDRAMINE 50MG/ML VIAL IV PRN (22:15)
[2018-11-21] VITALS: BP 101/51
[2018-11-21] MEDS: ENTACAPONE 200MG TABLET PO SCH ×8 (02:58→23:00)
[2018-11-21] MEDS: CARBIDOPA/LEVODOPA 25/100MG TABLET PO SCH ×8 (02:58→21:56)
[2018-11-21 04:00] VITALS: BP 92/54
[2018-11-21 06:39] LABS: HEMATOCRIT. 35.9 % (42.0-52.0); HEMOGLOBIN. 11.8 g/dL (14.0-18.0); MEAN CORPUSCULAR HEMOGLOBIN 27.4 pg (28.0-32.0); MEAN CORPUSCULAR VOLUME 83.2 fL (80.0-94.0); MEAN PLATELET VOLUME 11.4 fl (7.4-10.4); PLATELET 141 x1000/uL (130-400); RED BLOOD CELL COUNT 4.31 mill/uL (4.7-6.1); RED CELL DISTRIBUTION WIDTH 20.3 % (11.6-14.6)
[2018-11-21] MEDS: INSULIN LISPRO 100 UNITS/ML SUBCUT SCH ×4 (07:15→21:09)
[2018-11-21 07:48] LABS: CHLORIDE 107 mEq/L (98-107)
[2018-11-21] MEDS: BLOOD SUGAR DIAGNOSTIC STRIP TEST SCH ×4 (07:52→21:02)
[2018-11-21 08:00] VITALS: BP 95/60
[2018-11-21] MEDS: SODIUM CHLORIDE 0.45% 1,000 ML IV SCH ×2 (08:53→17:12)
[2018-11-21] MEDS: ASPIRIN 81MG EC TABLET PO SCH (08:54)
[2018-11-21] MEDS: BENZTROPINE MESYLATE 1MG TABLET PO SCH ×2 (08:55→17:12)
[2018-11-21] MEDS: ATORVASTATIN CALCIUM 40MG TABLET PO SCH (08:55)
[2018-11-21] MEDS: FOLIC ACID 1MG TABLET PO SCH (08:55)
[2018-11-21] MEDS: METOPROLOL TARTRATE 25MG TABLET PO SCH ×2 (09:00→21:05)
[2018-11-21 11:05] LABS: PLATELET ESTIMATE NORMAL
[2018-11-21 12:00] VITALS: BP 165/95
[2018-11-21] MEDS: CLONIDINE 0.1MG TABLET PO PRN (13:30)
[2018-11-21 16:00] VITALS: BP 98/45
[2018-11-21 20:00] VITALS: BP 125/60
[2018-11-21] MEDS: QUETIAPINE FUMARATE 25MG TABLET PO SCH (21:00)
[2018-11-22] VITALS: BP 117/55
[2018-11-22] MEDS: CARBIDOPA/LEVODOPA 25/100MG TABLET PO SCH ×6 (01:00→15:17)
[2018-11-22] MEDS: ENTACAPONE 200MG TABLET PO SCH ×5 (02:00→13:08)
[2018-11-22 04:00] VITALS: BP 115/57
[2018-11-22] MEDS: BLOOD SUGAR DIAGNOSTIC STRIP TEST SCH ×2 (06:43→11:59)
[2018-11-22] MEDS: SODIUM CHLORIDE 0.45% 1,000 ML IV SCH (06:44)
[2018-11-22] MEDS: INSULIN LISPRO 100 UNITS/ML SUBCUT SCH ×2 (06:44→12:20)
[2018-11-22 07:20] LABS: CHLORIDE 109 mEq/L (98-107)
[2018-11-22 07:42] LABS: HEMATOCRIT. 36.4 % (42.0-52.0); HEMOGLOBIN. 11.7 g/dL (14.0-18.0); MEAN CORPUSCULAR HEMOGLOBIN 27.2 pg (28.0-32.0); MEAN CORPUSCULAR VOLUME 84.7 fL (80.0-94.0); MEAN PLATELET VOLUME 10.5 fl (7.4-10.4); PLATELET 142 x1000/uL (130-400); RED BLOOD CELL COUNT 4.29 mill/uL (4.7-6.1); RED CELL DISTRIBUTION WIDTH 20.5 % (11.6-14.6)
[2018-11-22 08:00] VITALS: BP 113/50
[2018-11-22] MEDS: ASPIRIN 81MG EC TABLET PO SCH (08:18)
[2018-11-22] MEDS: ATORVASTATIN CALCIUM 40MG TABLET PO SCH (08:18)
[2018-11-22] MEDS: FOLIC ACID 1MG TABLET PO SCH (08:18)
[2018-11-22] MEDS: BENZTROPINE MESYLATE 1MG TABLET PO SCH (08:19)
[2018-11-22] MEDS: METOPROLOL TARTRATE 25MG TABLET PO SCH (08:20)
[2018-11-22 11:46] LABS: PLATELET ESTIMATE NORMAL
[2018-11-22 12:00] VITALS: BP 98/65
[2018-11-22 15:21] VITALS: BP 127/48
[2018-11-22 16:00] VITALS: BP 127/48
== END 2018-11-22 18:15 | disposition home or self-care (01) | DRG 641 ==
LOC: ER 03:25 → 5WST 08:39 → ENRESERV 08:49
PROVIDERS: ADMIT Internal Medicine; ATTEND Internal Medicine
DX: E86.0 Dehydration (principal); K52.9 Noninfective gastroenteritis and colitis, unspecified; E87.1 Hypo-osmolality and hyponatremia; R07.89 Other chest pain; E78.5 Hyperlipidemia, unspecified; G20 Parkinson's disease; I11.0 Hypertensive heart disease with heart failure; I25.10 Atherosclerotic heart disease of native coronary artery without angina pectoris; I25.5 Ischemic cardiomyopathy; I50.9 Heart failure, unspecified; N19 Unspecified kidney failure; Z79.4 Long term (current) use of insulin; Z95.5 Presence of coronary angioplasty implant and graft; Z82.49 Family history of ischemic heart disease and other diseases of the circulatory system; I25.2 Old myocardial infarction; Z83.3 Family history of diabetes mellitus; Z85.038 Personal history of other malignant neoplasm of large intestine; Z90.49 Acquired absence of other specified parts of digestive tract; Z92.21 Personal history of antineoplastic chemotherapy
CPT/HCPCS: 36415; 71045; 80048; 81003; 82962; 83880; 84484; 93005; 93306; 99285; J0696; J1815; J1885; J2405; J7030

== ENCOUNTER 2019-08-02 08:06 | Inpatient (IN) | payer MEDICARE, MEDICAID ==
[~2019-08-02] VITALS: Ht 180.3 cm; Wt 68.9 kg
[2019-08-02] MEDS ORDERED: ASPIRIN 325MG EC TABLET PO ONE (08:30)
[2019-08-02 08:48] LABS: HEMATOCRIT. 37.4 % (42.0-52.0); HEMOGLOBIN. 12.5 g/dL (14.0-18.0); MEAN CORPUSCULAR HEMOGLOBIN 32.3 pg (28.0-32.0); MEAN CORPUSCULAR VOLUME 96.4 fL (80.0-94.0); MEAN PLATELET VOLUME 10.9 fl (7.4-10.4); PLATELET 113 x1000/uL (130-400); RED BLOOD CELL COUNT 3.88 mill/uL (4.7-6.1); RED CELL DISTRIBUTION WIDTH 15.4 % (11.6-14.6)
[2019-08-02 08:51] LABS: CHLORIDE 106 mEq/L (98-107)
[2019-08-02 09:00] LABS: T4 FREE 1.15 ng/dL (0.76-1.46)
[2019-08-02 09:13] LABS: PLATELET ESTIMATE DECREASED
[2019-08-02] MEDS ORDERED: IOHEXOL-350 100 ML BOTTLE ONE (10:41)
[2019-08-02] MEDS ORDERED: CARBIDOPA/LEVODOPA 25/100MG TABLET PO ONE (11:15)
[2019-08-02] MEDS ORDERED: CARBIDOPA/LEVODOPA 25/100MG TABLET PO SCH ×2 (11:30→18:00)
[2019-08-02] MEDS ORDERED: DEXTROSE 50% WATER 50ML SYRINGE IV PRN (14:30)
[2019-08-02] MEDS ORDERED: ACETAMINOPHEN 325MG TABLET PO PRN (14:30)
[2019-08-02] MEDS ORDERED: ONDANSETRON HCL 4MG/2ML INJ IV PRN (14:30)
[2019-08-02] MEDS ORDERED: PIPERACILLIN/TAZ 3.375G PREMIX 50 ML IV ONE (15:30)
[2019-08-02 15:53] LABS: CLARITY URINE TURBID (CLEAR); COLOR URINE YELLOW (YELLOW); KETONES URINE TRACE (NEGATIVE); LEUKOCYTE ESTERASE URINE 3+ (NEGATIVE); NITRITE URINE POSITIVE (NEGATIVE); OCCULT BLOOD URINE 2+ (NEGATIVE); PH URINE 5.5 (4.5-8.0); PROTEIN URINE 2+ (NEGATIVE); SPECIFIC GRAVITY URINE 1.041 (1.005-1.030)
[2019-08-02 16:04] LABS: HEPATITIS B SURFACE ANTIGEN NEGATIVE
[2019-08-02 16:34] LABS: HEPATITIS A AB IGM NEGATIVE (NEGATIVE)
[2019-08-02 16:50] VITALS: BP 147/75
[2019-08-02 17:00] VITALS: BP 147/75
[2019-08-02] MEDS ORDERED: TRAMADOL 50MG TABLET PO PRN (17:15)
[2019-08-02] MEDS ORDERED: KETOROLAC 30MG/ML VIAL IV PRN (17:15)
[2019-08-02] MEDS: BLOOD SUGAR DIAGNOSTIC STRIP TEST SCH ×2 (17:49→21:59)
[2019-08-02] MEDS ORDERED: IBUPROFEN 800MG TABLET PO PRN (18:41)
[2019-08-02] MEDS: FOLIC ACID 1MG TABLET PO SCH (19:22)
[2019-08-02] MEDS: ASPIRIN 81MG EC TABLET PO SCH (19:22)
[2019-08-02] MEDS: BENZTROPINE MESYLATE 1MG TABLET PO SCH (19:22)
[2019-08-02] MEDS: INSULIN LISPRO 100 UNITS/ML SUBCUT SCH ×2 (19:23→21:00)
[2019-08-02] MEDS ORDERED: CEFTRIAXONE 1 G PREMIX 50 ML IV SCH (20:00)
[2019-08-02 20:33] VITALS: BP 131/39
[2019-08-02] MEDS: ENTACAPONE 200MG TABLET PO SCH (21:00)
[2019-08-02 21:30] VITALS: BP 139/67
[2019-08-02] MEDS: ATORVASTATIN CALCIUM 40MG TABLET PO SCH (21:58)
[2019-08-02] MEDS: QUETIAPINE FUMARATE 25MG TABLET PO SCH (21:58)
[2019-08-02] MEDS: METOPROLOL TARTRATE 25MG TABLET PO SCH (21:58)
[2019-08-02] MEDS: CARBIDOPA/LEVODOPA 25/100MG TABLET PO SCH (21:59)
[2019-08-03] VITALS: BP 132/97
[2019-08-03] MEDS: CARBIDOPA/LEVODOPA 25/100MG TABLET PO SCH ×9 (00:23→21:22)
[2019-08-03] MEDS: ENTACAPONE 200MG TABLET PO SCH ×8 (03:00→21:00)
[2019-08-03 04:00] VITALS: BP 146/69
[2019-08-03 05:41] LABS: HEMATOCRIT. 39.6 % (42.0-52.0); MEAN CORPUSCULAR HEMOGLOBIN 31.8 pg (28.0-32.0); MEAN CORPUSCULAR VOLUME 96.5 fL (80.0-94.0); MEAN PLATELET VOLUME 11.1 fl (7.4-10.4); PLATELET 135 x1000/uL (130-400); RED CELL DISTRIBUTION WIDTH 15.5 % (11.6-14.6)
[2019-08-03 06:10] LABS: CHLORIDE 104 mEq/L (98-107)
[2019-08-03] MEDS: BLOOD SUGAR DIAGNOSTIC STRIP TEST SCH ×4 (06:57→21:02)
[2019-08-03 08:00] VITALS: BP 94/44
[2019-08-03] MEDS: ASPIRIN 81MG EC TABLET PO SCH (08:56)
[2019-08-03] MEDS: FOLIC ACID 1MG TABLET PO SCH (08:56)
[2019-08-03] MEDS: METOPROLOL TARTRATE 25MG TABLET PO SCH ×2 (08:57→21:00)
[2019-08-03] MEDS: METFORMIN HCL 500MG TABLET PO SCH ×2 (09:00→18:00)
[2019-08-03] MEDS ORDERED: ASPIRIN 81MG TABLET PO SCH (09:00)
[2019-08-03] MEDS: BENZTROPINE MESYLATE 1MG TABLET PO SCH ×2 (09:02→18:00)
[2019-08-03] MEDS: INSULIN LISPRO 100 UNITS/ML SUBCUT SCH ×4 (09:04→21:00)
[2019-08-03 10:53] LABS: T4 FREE 1.09 ng/dL (0.76-1.46)
[2019-08-03 12:00] VITALS: BP 100/31
[2019-08-03 14:12] LABS: PLATELET ESTIMATE NORMAL
[2019-08-03 16:00] VITALS: BP 91/44
[2019-08-03 16:05] LABS: CREATINE KINASE 82 IU/L (39-308)
[2019-08-03 16:06] LABS: CREATINE KINASE MB FRACTION 1.5 ng/mL (0.5-3.6)
[2019-08-03 20:00] VITALS: BP 91/51
[2019-08-03] MEDS: MEROPENEM 500 MG in SODIUM CHLORIDE 0.9% 50 ML IV SCH (21:21)
[2019-08-03] MEDS: QUETIAPINE FUMARATE 25MG TABLET PO SCH (21:23)
[2019-08-03] MEDS: ATORVASTATIN CALCIUM 40MG TABLET PO SCH (21:23)
[2019-08-04] VITALS: BP_SYST 108; BP_SYST 94; BP_DIAS 50; BP_DIAS 56
[2019-08-04 00:14] LABS: CREATINE KINASE 83 IU/L (39-308)
[2019-08-04 00:15] LABS: CREATINE KINASE MB FRACTION 1.2 ng/mL (0.5-3.6)
[2019-08-04] MEDS: CARBIDOPA/LEVODOPA 25/100MG TABLET PO SCH ×8 (00:29→20:20)
[2019-08-04] MEDS: ENTACAPONE 200MG TABLET PO SCH ×8 (03:00→20:20)
[2019-08-04 04:00] VITALS: BP 103/46
[2019-08-04] MEDS: MEROPENEM 500 MG in SODIUM CHLORIDE 0.9% 50 ML IV SCH ×3 (05:46→20:38)
[2019-08-04 07:24] LABS: CREATINE KINASE 67 IU/L (39-308)
[2019-08-04 07:26] LABS: CREATINE KINASE MB FRACTION 1.2 ng/mL (0.5-3.6)
[2019-08-04] MEDS: INSULIN LISPRO 100 UNITS/ML SUBCUT SCH ×4 (07:50→20:37)
[2019-08-04 08:00] VITALS: BP 95/45
[2019-08-04] MEDS: BLOOD SUGAR DIAGNOSTIC STRIP TEST SCH ×4 (08:03→20:37)
[2019-08-04] MEDS: FOLIC ACID 1MG TABLET PO SCH (08:54)
[2019-08-04] MEDS: ASPIRIN 81MG EC TABLET PO SCH (08:54)
[2019-08-04] MEDS: METFORMIN HCL 500MG TABLET PO SCH ×2 (08:54→18:21)
[2019-08-04] MEDS: BENZTROPINE MESYLATE 1MG TABLET PO SCH ×2 (08:56→18:22)
[2019-08-04] MEDS: METOPROLOL TARTRATE 25MG TABLET PO SCH ×2 (09:00→20:21)
[2019-08-04 12:00] VITALS: BP 97/55
[2019-08-04] MEDS ORDERED: IPRATROPIUM/ALBUTEROL 0.5-3(2.5)MG/3ML NEB HHN PRN (15:30)
[2019-08-04 16:00] VITALS: BP 127/40
[2019-08-04 20:00] VITALS: BP 127/91
[2019-08-04] MEDS: QUETIAPINE FUMARATE 25MG TABLET PO SCH (20:19)
[2019-08-04] MEDS: ATORVASTATIN CALCIUM 40MG TABLET PO SCH (20:20)
[2019-08-04] MEDS ORDERED: LEVO500T2 MT (21:15)
[2019-08-05] VITALS: BP 108/50
[2019-08-05 00:10] LABS: HEMATOCRIT. 32.8 % (42.0-52.0); PLATELET 153 x1000/uL (130-400); RED BLOOD CELL COUNT 3.45 mill/uL (4.7-6.1); RED CELL DISTRIBUTION WIDTH 14.9 % (11.6-14.6)
[2019-08-05 00:18] LABS: CHLORIDE 105 mEq/L (98-107)
[2019-08-05] MEDS: ENTACAPONE 200MG TABLET PO SCH ×7 (00:40→15:00)
[2019-08-05] MEDS: CARBIDOPA/LEVODOPA 25/100MG TABLET PO SCH ×7 (00:40→15:24)
[2019-08-05 00:44] LABS: PLATELET ESTIMATE NORMAL
[2019-08-05] MEDS: MEROPENEM 500 MG in SODIUM CHLORIDE 0.9% 50 ML IV SCH ×2 (05:25→13:30)
[2019-08-05] MEDS: BLOOD SUGAR DIAGNOSTIC STRIP TEST SCH ×2 (07:20→12:20)
[2019-08-05] MEDS: INSULIN LISPRO 100 UNITS/ML SUBCUT SCH ×2 (07:50→12:50)
[2019-08-05 08:08] VITALS: BP 111/59
[2019-08-05] MEDS: ASPIRIN 81MG EC TABLET PO SCH (09:34)
[2019-08-05] MEDS: METFORMIN HCL 500MG TABLET PO SCH (09:34)
[2019-08-05] MEDS: FOLIC ACID 1MG TABLET PO SCH (09:34)
[2019-08-05] MEDS: METOPROLOL TARTRATE 25MG TABLET PO SCH (09:35)
[2019-08-05] MEDS: BENZTROPINE MESYLATE 1MG TABLET PO SCH (09:46)
[2019-08-05 11:40] VITALS: BP 119/46
[2019-08-05 12:30] VITALS: BP 119/46
[2019-08-05 16:45] VITALS: BP 102/58
== END 2019-08-05 15:54 | disposition home or self-care (01) | DRG 871 ==
LOC: ER 08:06 → EDBEDREQ 13:26 → ENRESERV 16:06 → 6WST 16:45
PROVIDERS: ADMIT Internal Medicine; ATTEND Internal Medicine
DX: A41.59 Other Gram-negative sepsis (principal); J96.00 Acute respiratory failure, unspecified whether with hypoxia or hypercapnia; N39.0 Urinary tract infection, site not specified; J98.11 Atelectasis; I50.22 Chronic systolic (congestive) heart failure; R17 Unspecified jaundice; T79.7XXA Traumatic subcutaneous emphysema, initial encounter; Z16.12 Extended spectrum beta lactamase (ESBL) resistance; D64.9 Anemia, unspecified; D69.6 Thrombocytopenia, unspecified; E78.5 Hyperlipidemia, unspecified; G20 Parkinson's disease; I10 Essential (primary) hypertension; J39.8 Other specified diseases of upper respiratory tract; I25.10 Atherosclerotic heart disease of native coronary artery without angina pectoris; E89.0 Postprocedural hypothyroidism; B96.89 Other specified bacterial agents as the cause of diseases classified elsewhere; Y82.9 Unspecified medical devices associated with adverse incidents; E78.00 Pure hypercholesterolemia, unspecified; X58.XXXA Exposure to other specified factors, initial encounter; B96.1 Klebsiella pneumoniae [K. pneumoniae] as the cause of diseases classified elsewhere; I11.0 Hypertensive heart disease with heart failure; E11.9 Type 2 diabetes mellitus without complications; Z85.038 Personal history of other malignant neoplasm of large intestine; Z86.718 Personal history of other venous thrombosis and embolism; Z86.73 Personal history of transient ischemic attack (TIA), and cerebral infarction without residual deficits; Z85.850 Personal history of malignant neoplasm of thyroid; Z79.01 Long term (current) use of anticoagulants; Z92.21 Personal history of antineoplastic chemotherapy; Z95.5 Presence of coronary angioplasty implant and graft; Y92.89 Other specified places as the place of occurrence of the external cause; Z88.6 Allergy status to analgesic agent; Z88.5 Allergy status to narcotic agent; Z79.82 Long term (current) use of aspirin; Z79.899 Other long term (current) drug therapy; K21.9 Gastro-esophageal reflux disease without esophagitis; R07.9 Chest pain, unspecified
CPT/HCPCS: 36415; 71045; 71275; 80048; 80053; 80061; 81003; 82550; 82553; 82962; 83036; 83880; 84145; 84439; 84443; 84484; 85025; 85379; 86705; 86709; 86803; 87077; 87186; 87340; 92610; 93005; 93306; 93970; 97116; 97162; 97530; 99285; J0696; J1815; J1885; J2185; Q9967

== ENCOUNTER 2019-09-02 13:24 | Inpatient (IN) | payer MEDICARE, MEDICAID ==
[~2019-09-02] VITALS: Ht 177.8 cm; Wt 68.0 kg
[~2019-09-02 13:24] MED LIST changes: -AMAN100C16 MT; +LEVO500T2 MT; -[UNRECOGNIZED DRUG - CODE] MT
[2019-09-02 14:39] LABS: HEMATOCRIT. 39.8 % (42.0-52.0); HEMOGLOBIN. 13.3 g/dL (14.0-18.0); MEAN CORPUSCULAR HEMOGLOBIN 31.9 pg (28.0-32.0); MEAN CORPUSCULAR VOLUME 95.7 fL (80.0-94.0); MEAN PLATELET VOLUME 11.1 fl (7.4-10.4); PLATELET 136 x1000/uL (130-400); RED BLOOD CELL COUNT 4.16 mill/uL (4.7-6.1); RED CELL DISTRIBUTION WIDTH 15.5 % (11.6-14.6)
[2019-09-02 14:43] LABS: CHLORIDE 102 mEq/L (98-107)
[2019-09-02 14:45] LABS: INR 1.1; PROTHROMBIN TIME 11.4 sec (9.6-11.0)
[2019-09-02 14:51] LABS: ETHANOL BLOOD < 10 mg/dL
[2019-09-02 14:55] LABS: PLATELET ESTIMATE NORMAL
[2019-09-02] MEDS ORDERED: LORAZEPAM 2MG/ML CPJ IV ONE (17:15)
[2019-09-02] MEDS ORDERED: CARBIDOPA/LEVODOPA 25/100MG TABLET PO ONE ×2 (17:15→17:45)
[2019-09-02] MEDS ORDERED: IOHEXOL-300 100 ML BOTTLE ONE (19:20)
[2019-09-02] MEDS ORDERED: METRONIDAZOLE 500 MG PREMIX 100 ML IV ONE (19:30)
[2019-09-02] MEDS ORDERED: CEFTRIAXONE 1 G PREMIX 50 ML IV ONE (19:30)
[2019-09-02 21:45] VITALS: BP 128/62
[2019-09-02] MEDS ORDERED: DEXTROSE 50% WATER 50ML SYRINGE IV PRN (23:00)
[2019-09-02] MEDS ORDERED: MORPHINE SULFATE 2 MG/ML CPJ (NOT FOR IM USE) IV PRN (23:00)
[2019-09-03] VITALS (7 sets, daily range): BP systolic 108–150; BP diastolic 53–78
[2019-09-03] MEDS: DEXT 5%/0.45% NACL KCL 20MEQ/L 1,000 ML IV SCH ×2 (00:59→12:47)
[2019-09-03] MEDS: METRONIDAZOLE 500 MG PREMIX 100 ML IV SCH ×3 (02:52→18:11)
[2019-09-03] MEDS: BLOOD SUGAR DIAGNOSTIC STRIP TEST SCH ×4 (06:26→20:47)
[2019-09-03 07:12] LABS: HEMATOCRIT. 36.2 % (42.0-52.0); HEMOGLOBIN. 12.4 g/dL (14.0-18.0); MEAN CORPUSCULAR HEMOGLOBIN 32.2 pg (28.0-32.0); MEAN CORPUSCULAR VOLUME 94.2 fL (80.0-94.0); PLATELET 138 x1000/uL (130-400); RED BLOOD CELL COUNT 3.84 mill/uL (4.7-6.1)
[2019-09-03 07:16] LABS: CHLORIDE 106 mEq/L (98-107)
[2019-09-03] MEDS: INSULIN LISPRO 100 UNITS/ML SUBCUT SCH ×4 (07:16→20:47)
[2019-09-03 07:25] LABS: LDL CHOLESTEROL 59 mg/dL (5-100)
[2019-09-03 07:27] LABS: HDL CHOLESTEROL 45 mg/dL (40-59)
[2019-09-03] MEDS: LEVOFLOXACIN 500MG PREMIX 100 ML IV SCH (09:07)
[2019-09-03] MEDS: ENOXAPARIN 40MG/0.4ML SYR SUBCUT SCH (09:08)
[2019-09-03] MEDS: PANTOPRAZOLE SODIUM 40 MG/VIAL IV SCH (09:08)
[2019-09-03] MEDS: INSULIN GLARGINE UD 100 UNITS/ML SYR SUBCUT SCH ×2 (10:40→22:07)
[2019-09-03] MEDS ORDERED: CARBIDOPA/LEVODOPA 25/100MG TABLET PO SCH (12:30)
[2019-09-03 13:38] LABS: PLATELET ESTIMATE NORMAL
[2019-09-03] MEDS: CARBIDOPA/LEVODOPA 25/100MG TABLET PO SCH ×3 (16:19→22:06)
[2019-09-04] VITALS: BP 121/57
[2019-09-04] MEDS: CARBIDOPA/LEVODOPA 25/100MG TABLET PO SCH ×8 (00:48→21:11)
[2019-09-04] MEDS: METRONIDAZOLE 500 MG PREMIX 100 ML IV SCH ×3 (02:31→18:11)
[2019-09-04 04:00] VITALS: BP 143/60
[2019-09-04] MEDS: BLOOD SUGAR DIAGNOSTIC STRIP TEST SCH ×4 (06:21→20:40)
[2019-09-04] MEDS: INSULIN LISPRO 100 UNITS/ML SUBCUT SCH ×4 (06:22→20:40)
[2019-09-04 06:56] LABS: CHLORIDE 106 mEq/L (98-107)
[2019-09-04 06:59] LABS: HEMATOCRIT. 36.8 % (42.0-52.0); HEMOGLOBIN. 12.4 g/dL (14.0-18.0); MEAN CORPUSCULAR HEMOGLOBIN 32.1 pg (28.0-32.0); MEAN CORPUSCULAR VOLUME 94.9 fL (80.0-94.0); MEAN PLATELET VOLUME 10.9 fl (7.4-10.4); PLATELET 124 x1000/uL (130-400); RED BLOOD CELL COUNT 3.88 mill/uL (4.7-6.1); RED CELL DISTRIBUTION WIDTH 15.6 % (11.6-14.6)
[2019-09-04 08:00] VITALS: BP_SYST 142; BP_SYST 150; BP_DIAS 71; BP_DIAS 73
[2019-09-04] MEDS: PANTOPRAZOLE SODIUM 40 MG/VIAL IV SCH (08:20)
[2019-09-04] MEDS: ENOXAPARIN 40MG/0.4ML SYR SUBCUT SCH (08:20)
[2019-09-04] MEDS: LEVOFLOXACIN 500MG PREMIX 100 ML IV SCH (08:20)
[2019-09-04] MEDS ORDERED: ONDANSETRON HCL 4MG/2ML INJ IV PRN (08:30)
[2019-09-04] MEDS ORDERED: METR500T MT (09:51)
[2019-09-04] MEDS ORDERED: LEVO500T2 MT (09:51)
[2019-09-04] MEDS: INSULIN GLARGINE UD 100 UNITS/ML SYR SUBCUT SCH ×2 (10:47→21:12)
[2019-09-04 11:20] LABS: PLATELET ESTIMATE SLIGHTLY DECREASED
[2019-09-04 12:00] VITALS: BP 138/57
[2019-09-04] MEDS: METOCLOPRAMIDE HCL 10MG/2ML VIAL IV SCH ×2 (12:33→18:16)
[2019-09-04 16:00] VITALS: BP 139/75
[2019-09-04 20:00] VITALS: BP 144/55
[2019-09-05] VITALS (7 sets, daily range): BP systolic 110–159; BP diastolic 60–88
[2019-09-05] MEDS: CARBIDOPA/LEVODOPA 25/100MG TABLET PO SCH ×7 (00:41→19:03)
[2019-09-05] MEDS: METRONIDAZOLE 500 MG PREMIX 100 ML IV SCH ×3 (02:03→17:27)
[2019-09-05] MEDS: INSULIN LISPRO 100 UNITS/ML SUBCUT SCH ×4 (06:03→20:35)
[2019-09-05] MEDS: BLOOD SUGAR DIAGNOSTIC STRIP TEST SCH ×4 (06:03→20:34)
[2019-09-05] MEDS: METOCLOPRAMIDE HCL 10MG/2ML VIAL IV SCH ×4 (06:16→18:00)
[2019-09-05] MEDS: PANTOPRAZOLE SODIUM 40 MG/VIAL IV SCH (08:49)
[2019-09-05] MEDS: ENOXAPARIN 40MG/0.4ML SYR SUBCUT SCH (08:49)
[2019-09-05] MEDS: LEVOFLOXACIN 500MG PREMIX 100 ML IV SCH (08:50)
[2019-09-05] MEDS: INSULIN GLARGINE UD 100 UNITS/ML SYR SUBCUT SCH (11:38)
[2019-09-05] MEDS: DEXT 5%/0.45% NACL KCL 20MEQ/L 1,000 ML IV SCH (14:47)
[2019-09-07 13:06] LABS: SACCHAROMYCES CEREVISIAE IGG 39.6 Units (0.0-24.9); SACCHAROMYCES CEREVISIAE IGM 31.2 Units (0.0-24.9)
[2019-09-08 14:11] LABS: ATYPICAL pANCA <1:20 titer (Neg:<1:20)
== END 2019-09-05 22:16 | disposition home health service (06) | DRG 386 ==
LOC: ER 13:30 → 7WST 19:29 → ENRESERV 20:45 → 8WST 22:02
PROVIDERS: ADMIT Internal Medicine; ATTEND Internal Medicine
DX: K51.90 Ulcerative colitis, unspecified, without complications (principal); N39.0 Urinary tract infection, site not specified; G90.8 Other disorders of autonomic nervous system; G20 Parkinson's disease; I25.10 Atherosclerotic heart disease of native coronary artery without angina pectoris; I10 Essential (primary) hypertension; K76.0 Fatty (change of) liver, not elsewhere classified; I25.5 Ischemic cardiomyopathy; E78.5 Hyperlipidemia, unspecified; Z20.828 Contact with and (suspected) exposure to other viral communicable diseases; K57.30 Diverticulosis of large intestine without perforation or abscess without bleeding; E11.65 Type 2 diabetes mellitus with hyperglycemia; Z88.5 Allergy status to narcotic agent; Z88.6 Allergy status to analgesic agent; Z79.2 Long term (current) use of antibiotics; Z79.1 Long term (current) use of non-steroidal anti-inflammatories (NSAID); Z79.82 Long term (current) use of aspirin; Z79.84 Long term (current) use of oral hypoglycemic drugs; Z79.899 Other long term (current) drug therapy; Z90.49 Acquired absence of other specified parts of digestive tract; Z85.038 Personal history of other malignant neoplasm of large intestine; Z92.21 Personal history of antineoplastic chemotherapy; I25.2 Old myocardial infarction
CPT/HCPCS: 36415; 71045; 74177; 80048; 80053; 80061; 80320; 82378; 82962; 83036; 83605; 83880; 84484; 85025; 86256; 86671; 86850; 86900; 87015; 87045; 87427; 87449; 87493; 89055; 93005; 97162; 99285; C9113; J1650; J1815; J1956; J2060; J2405; J2765; J3490; Q9967; C9803-CS; G0480; U0003-CS

== ENCOUNTER 2019-09-10 14:18 | Inpatient (IN) | payer MEDICARE, MEDICAID ==
[~2019-09-10] VITALS: Ht 175.3 cm; Wt 68.5 kg
[~2019-09-10 14:18] MED LIST changes: +METR500T MT
[2019-09-10] MEDS ORDERED: SODIUM CHLORIDE 0.9% 1,000 ML IV ONE (14:50)
[2019-09-10 15:13] LABS: CHLORIDE 105 mEq/L (98-107)
[2019-09-10 15:15] LABS: BASOPHILS % 0.8 % (0.0-2.0); EOSINOPHILS % 4.1 % (0.0-5.0); HEMOGLOBIN. 12.2 g/dL (14.0-18.0); LYMPHOCYTES % 10.8 % (20.0-50.0); MEAN CORPUSCULAR HEMOGLOBIN 31.5 pg (28.0-32.0); MEAN CORPUSCULAR VOLUME 95.4 fL (80.0-94.0); MEAN PLATELET VOLUME 10.9 fl (7.4-10.4); MONOCYTES % 5.3 % (2.0-8.0); PLATELET 110 x1000/uL (130-400); RED BLOOD CELL COUNT 3.88 mill/uL (4.7-6.1); RED CELL DISTRIBUTION WIDTH 15.2 % (11.6-14.6)
[2019-09-10 15:17] LABS: ETHANOL BLOOD < 10 mg/dL; INR 1.2; PARTIAL THROMBOPLASTIN TIME 29.7 sec (23.4-31.0); PROTHROMBIN TIME 12.4 sec (9.6-11.0)
[2019-09-10] MEDS ORDERED: ASPIRIN 325MG EC TABLET PO ONE (16:45)
[2019-09-10 18:35] LABS: CLARITY URINE CLEAR (CLEAR); COLOR URINE YELLOW (YELLOW); KETONES URINE NEGATIVE (NEGATIVE); LEUKOCYTE ESTERASE URINE NEGATIVE (NEGATIVE); NITRITE URINE NEGATIVE (NEGATIVE); OCCULT BLOOD URINE NEGATIVE (NEGATIVE); PROTEIN URINE NEGATIVE (NEGATIVE); SPECIFIC GRAVITY URINE 1.007 (1.005-1.030); UROBILINOGEN URINE 0.2 E.U./dL (0.2-1.0)
[2019-09-10 18:46] LABS: *AMPHETAMINES SCREEN URINE NEGATIVE (NEGATIVE); *BARBITURATES SCREEN URINE NEGATIVE (NEGATIVE); *BENZODIAZEPINES SCREEN URINE NEGATIVE (NEGATIVE)
[2019-09-10 18:47] LABS: *COCAINE SCREEN URINE NEGATIVE (NEGATIVE); CANNABINOID URINE SCREEN NEGATIVE (NEGATIVE); METHADONE URINE SCREEN NEGATIVE (NEGATIVE); OPIATES URINE SCREEN NEGATIVE (NEGATIVE); PHENCYCLIDINE URINE SCREEN NEGATIVE (NEGATIVE)
[2019-09-10] MEDS: SODIUM CHLORIDE 0.9% 1,000 ML IV SCH (19:40)
[2019-09-10] MEDS ORDERED: CLONIDINE 0.1MG TABLET PO PRN (19:45)
[2019-09-10] MEDS ORDERED: ONDANSETRON HCL 4MG/2ML INJ IV PRN (19:45)
[2019-09-10] MEDS ORDERED: ACETAMINOPHEN 325MG TABLET PO PRN ×2 (19:45)
[2019-09-10] MEDS ORDERED: DEXTROSE 50% WATER 50ML SYRINGE IV PRN (19:45)
[2019-09-10] MEDS ORDERED: MAGNESIUM/ALUMINUM HYDROXIDE/SIMETHICONE 30ML UDC PO PRN (19:45)
[2019-09-10] MEDS ORDERED: ENTACAPONE 200MG TABLET PO NR (21:00)
[2019-09-10] MEDS ORDERED: CARBIDOPA/LEVODOPA 25/100MG TABLET CR PO NR (21:00)
[2019-09-10] MEDS ORDERED: CARBIDOPA/LEVODOPA 25/100MG TABLET CR PO SCH (21:00)
[2019-09-10] MEDS: INSULIN LISPRO 100 UNITS/ML SUBCUT SCH (21:23)
[2019-09-10] MEDS: BLOOD SUGAR DIAGNOSTIC STRIP TEST SCH (21:23)
[2019-09-10] MEDS: SODIUM CHLORIDE 0.9% INJ 3ML FLUSH IVF SCH (21:24)
[2019-09-10] MEDS ORDERED: ENTACAPONE 200MG TABLET PO SCH (22:00)
[2019-09-10 22:26] VITALS: BP 148/88
[2019-09-10] MEDS ORDERED: CARB1TAB9 MT (23:38)
[2019-09-11] MEDS: CARBIDOPA/LEVODOPA 25/100MG TABLET PO SCH ×8 (00:10→20:01)
[2019-09-11 00:27] VITALS: BP 118/66
[2019-09-11] MEDS: ENTACAPONE 200MG TABLET PO SCH ×7 (03:08→20:06)
[2019-09-11 04:00] VITALS: BP 107/64
[2019-09-11] MEDS ORDERED: ENTACAPONE 200MG TABLET PO SCH (06:00)
[2019-09-11] MEDS: SODIUM CHLORIDE 0.9% INJ 3ML FLUSH IVF SCH ×3 (06:04→20:06)
[2019-09-11] MEDS: INSULIN LISPRO 100 UNITS/ML SUBCUT SCH ×5 (07:31→21:00)
[2019-09-11] MEDS: BLOOD SUGAR DIAGNOSTIC STRIP TEST SCH ×4 (07:31→20:06)
[2019-09-11 08:00] VITALS: BP 115/59
[2019-09-11] MEDS ORDERED: CARBIDOPA/LEVODOPA 25/100MG TABLET CR PO SCH (09:00)
[2019-09-11] MEDS: METFORMIN HCL 500MG TABLET PO SCH ×2 (09:04→17:30)
[2019-09-11] MEDS: SODIUM CHLORIDE 0.9% 1,000 ML IV SCH ×2 (09:04→22:20)
[2019-09-11] MEDS: BENZTROPINE MESYLATE 1MG TABLET PO SCH ×2 (09:04→20:01)
[2019-09-11] MEDS: NYSTATIN POWDER 15GM TOP SCH ×2 (14:30→17:30)
[2019-09-11 16:00] VITALS: BP 159/91
[2019-09-11 20:00] VITALS: BP 121/73
[2019-09-11] MEDS ORDERED: BENZTROPINE MESYLATE 1MG/1ML 2ML AMP IM SCH (21:00)
[2019-09-11] MEDS ORDERED: QUETIAPINE FUMARATE 25MG TABLET PO SCH (21:00)
[2019-09-12] VITALS: BP 115/66
[2019-09-12] MEDS: CARBIDOPA/LEVODOPA 25/100MG TABLET PO SCH ×9 (00:27→23:55)
[2019-09-12] MEDS: ENTACAPONE 200MG TABLET PO SCH ×9 (00:27→23:56)
[2019-09-12 04:00] VITALS: BP 108/64
[2019-09-12] MEDS: SODIUM CHLORIDE 0.9% INJ 3ML FLUSH IVF SCH ×3 (06:00→21:06)
[2019-09-12] MEDS: BLOOD SUGAR DIAGNOSTIC STRIP TEST SCH ×4 (06:10→21:06)
[2019-09-12] MEDS: INSULIN LISPRO 100 UNITS/ML SUBCUT SCH ×4 (07:40→21:00)
[2019-09-12 08:00] VITALS: BP 169/93
[2019-09-12] MEDS: BENZTROPINE MESYLATE 1MG TABLET PO SCH (08:37)
[2019-09-12] MEDS: METFORMIN HCL 500MG TABLET PO SCH ×2 (08:37→17:29)
[2019-09-12] MEDS: ENOXAPARIN 40MG/0.4ML SYR SUBCUT SCH (08:38)
[2019-09-12] MEDS: NYSTATIN POWDER 15GM TOP SCH ×3 (08:38→17:25)
[2019-09-12] MEDS: SODIUM CHLORIDE 0.9% 1,000 ML IV SCH ×2 (11:40→18:45)
[2019-09-12 12:00] VITALS: BP_SYST 133; BP_SYST 134; BP_DIAS 91; BP_DIAS 94
[2019-09-12] MEDS: LORAZEPAM 1MG TABLET PO PRN ×2 (14:35→23:56)
[2019-09-12 16:00] VITALS: BP 133/94
[2019-09-12] MEDS ORDERED: METFORMIN HCL 500MG TABLET PO SCH (18:30)
[2019-09-12 20:00] VITALS: BP 118/79
[2019-09-12] MEDS: QUETIAPINE FUMARATE 25MG TABLET PO SCH (21:06)
[2019-09-13] VITALS: BP 145/87
[2019-09-13] MEDS: CARBIDOPA/LEVODOPA 25/100MG TABLET PO SCH ×7 (02:30→17:13)
[2019-09-13] MEDS: ENTACAPONE 200MG TABLET PO SCH ×7 (02:30→17:13)
[2019-09-13 04:00] VITALS: BP 103/45
[2019-09-13] MEDS: SODIUM CHLORIDE 0.9% INJ 3ML FLUSH IVF SCH ×2 (06:00→13:32)
[2019-09-13] MEDS: BLOOD SUGAR DIAGNOSTIC STRIP TEST SCH ×3 (06:34→17:17)
[2019-09-13] MEDS: INSULIN LISPRO 100 UNITS/ML SUBCUT SCH ×3 (06:34→17:17)
[2019-09-13 08:00] VITALS: BP 106/50
[2019-09-13] MEDS: ENOXAPARIN 40MG/0.4ML SYR SUBCUT SCH (09:00)
[2019-09-13] MEDS: NYSTATIN POWDER 15GM TOP SCH ×3 (10:12→17:13)
[2019-09-13] MEDS: QUETIAPINE FUMARATE 25MG TABLET PO SCH (10:12)
[2019-09-13 12:00] VITALS: BP 120/76
[2019-09-13] MEDS: SODIUM CHLORIDE 0.9% 1,000 ML IV SCH (13:33)
[2019-09-13 17:54] VITALS: BP 129/77
[2019-09-13] MEDS ORDERED: QUETIAPINE FUMARATE 25MG TABLET PO SCH (21:00)
== END 2019-09-13 18:20 | disposition home health service (06) | DRG 73 ==
LOC: ER 14:26 → 8WST 18:05 → EDBEDREQ 18:07 → EDBEDREQTM 18:07 → ENRESERV 21:53
PROVIDERS: ADMIT Internal Medicine; ATTEND Internal Medicine
DX: G90.9 Disorder of the autonomic nervous system, unspecified (principal); G93.41 Metabolic encephalopathy; D64.9 Anemia, unspecified; E11.9 Type 2 diabetes mellitus without complications; F41.9 Anxiety disorder, unspecified; I10 Essential (primary) hypertension; E89.0 Postprocedural hypothyroidism; F41.1 Generalized anxiety disorder; G20 Parkinson's disease; I25.10 Atherosclerotic heart disease of native coronary artery without angina pectoris; I25.5 Ischemic cardiomyopathy; M19.019 Primary osteoarthritis, unspecified shoulder; Z82.49 Family history of ischemic heart disease and other diseases of the circulatory system; I25.2 Old myocardial infarction; Z83.3 Family history of diabetes mellitus; Z95.5 Presence of coronary angioplasty implant and graft; Z85.038 Personal history of other malignant neoplasm of large intestine; Z88.5 Allergy status to narcotic agent; Z88.8 Allergy status to other drugs, medicaments and biological substances; Z79.2 Long term (current) use of antibiotics; Z90.49 Acquired absence of other specified parts of digestive tract; Z79.899 Other long term (current) drug therapy; I16.0 Hypertensive urgency
CPT/HCPCS: 36415; 71045; 73030; 80053; 80305; 80320; 81003; 82040; 82962; 83036; 83880; 84134; 84484; 85025; 93005; 99285; J1815; J7030; G0480

== ENCOUNTER 2019-11-19 02:30 | Inpatient (IN) | payer MEDICARE, MEDICAID ==
[~2019-11-19] VITALS: Ht 180.3 cm; Wt 79.5 kg
[~2019-11-19 02:30] MED LIST changes: -CARB1TAB5 PO; +CARB1TAB9 MT
[2019-11-19] MEDS ORDERED: ASPIRIN 81MG TABLET PO ONE (06:45)
[2019-11-19] MEDS ORDERED: NITROGLYCERIN OINT 1GM/INCH UDPKT TD ONE (06:45)
[2019-11-19] MEDS ORDERED: CARBIDOPA/LEVODOPA 10/100MG TABLET PO ONE (06:45)
[2019-11-19 08:09] LABS: HEMATOCRIT. 41.6 % (42.0-52.0); HEMOGLOBIN. 14.1 g/dL (14.0-18.0); MEAN CORPUSCULAR HEMOGLOBIN 32.2 pg (28.0-32.0); MEAN CORPUSCULAR VOLUME 95.1 fL (80.0-94.0); MEAN PLATELET VOLUME 10.9 fl (7.4-10.4); PLATELET 158 x1000/uL (130-400); RED BLOOD CELL COUNT 4.37 mill/uL (4.7-6.1); RED CELL DISTRIBUTION WIDTH 14.2 % (11.6-14.6)
[2019-11-19 08:16] LABS: CHLORIDE 102 mEq/L (98-107)
[2019-11-19 08:38] LABS: PLATELET ESTIMATE NORMAL
[2019-11-19 10:06] LABS: CLARITY URINE CLEAR (CLEAR); COLOR URINE YELLOW (YELLOW); KETONES URINE TRACE (NEGATIVE); LEUKOCYTE ESTERASE URINE NEGATIVE (NEGATIVE); NITRITE URINE NEGATIVE (NEGATIVE); OCCULT BLOOD URINE NEGATIVE (NEGATIVE); PROTEIN URINE NEGATIVE (NEGATIVE); SPECIFIC GRAVITY URINE 1.023 (1.005-1.030)
[2019-11-19 12:45] VITALS: BP 131/67
[2019-11-19] MEDS ORDERED: LORAZEPAM 0.5MG TABLET PO PRN (14:45)
[2019-11-19] MEDS ORDERED: DEXTROSE 50% WATER 50ML SYRINGE IV PRN (14:45)
[2019-11-19] MEDS ORDERED: ONDANSETRON HCL 4MG/2ML INJ IV PRN (14:45)
[2019-11-19] MEDS ORDERED: DIPHENHYDRAMINE 50MG/ML VIAL IV PRN (14:45)
[2019-11-19] MEDS ORDERED: ZOLPIDEM TARTRATE 5MG TABLET PO PRN (14:45)
[2019-11-19] MEDS ORDERED: MAGNESIUM/ALUMINUM HYDROXIDE/SIMETHICONE 30ML UDC PO PRN (14:45)
[2019-11-19] MEDS ORDERED: ACETAMINOPHEN 325MG TABLET PO PRN (14:45)
[2019-11-19] MEDS ORDERED: CLONIDINE 0.1MG TABLET PO PRN (14:45)
[2019-11-19 14:51] VITALS: BP 131/67
[2019-11-19 16:10] VITALS: BP 123/63
[2019-11-19] MEDS: ENTACAPONE 200MG TABLET PO SCH ×3 (17:04→22:14)
[2019-11-19] MEDS: METFORMIN HCL 500MG TABLET PO SCH (17:05)
[2019-11-19] MEDS: CARBIDOPA/LEVODOPA 25/100MG TABLET CR PO SCH ×3 (17:05→22:14)
[2019-11-19] MEDS: BLOOD SUGAR DIAGNOSTIC STRIP TEST SCH ×2 (18:08→21:00)
[2019-11-19] MEDS: INSULIN LISPRO 100 UNITS/ML SUBCUT SCH ×2 (18:09→21:00)
[2019-11-19 20:00] VITALS: BP 121/72
[2019-11-19] MEDS: ATORVASTATIN CALCIUM 40MG TABLET PO SCH (22:13)
[2019-11-19] MEDS: BENZTROPINE MESYLATE 1MG TABLET PO SCH (22:14)
[2019-11-19] MEDS: QUETIAPINE FUMARATE 25MG TABLET PO SCH (22:15)
[2019-11-20] VITALS: BP 128/66
[2019-11-20] MEDS: ENTACAPONE 200MG TABLET PO SCH ×8 (01:35→23:40)
[2019-11-20] MEDS: CARBIDOPA/LEVODOPA 25/100MG TABLET CR PO SCH ×5 (01:35→12:59)
[2019-11-20 04:00] VITALS: BP 111/66
[2019-11-20] MEDS: SODIUM CHLORIDE 0.9% INJ 3ML FLUSH IVF SCH ×3 (06:52→21:12)
[2019-11-20] MEDS: BLOOD SUGAR DIAGNOSTIC STRIP TEST SCH ×4 (07:09→20:50)
[2019-11-20] MEDS: INSULIN LISPRO 100 UNITS/ML SUBCUT SCH ×4 (07:50→20:50)
[2019-11-20 08:04] VITALS: BP 100/57
[2019-11-20 11:10] LABS: T4 FREE 0.9 ng/dL (0.76-1.46)
[2019-11-20] MEDS: METFORMIN HCL 500MG TABLET PO SCH ×2 (11:56→17:36)
[2019-11-20] MEDS: ASPIRIN 81MG TABLET PO SCH (11:56)
[2019-11-20 12:14] VITALS: BP 111/54
[2019-11-20] MEDS: ACETAMINOPHEN 325MG TABLET PO PRN (13:09)
[2019-11-20] MEDS: CARBIDOPA/LEVODOPA 10/100MG TABLET PO SCH ×3 (16:00→22:00)
[2019-11-20 16:08] VITALS: BP 139/67
[2019-11-20] MEDS: LEVOTHYROXINE SODIUM 100MCG TABLET PO SCH (16:21)
[2019-11-20 16:41] LABS: CREATINE KINASE 53 IU/L (39-308)
[2019-11-20 16:42] LABS: CREATINE KINASE MB FRACTION 1.9 ng/mL (0.5-3.6)
[2019-11-20 20:00] VITALS: BP 121/63
[2019-11-20] MEDS: BENZTROPINE MESYLATE 1MG TABLET PO SCH (20:50)
[2019-11-20] MEDS: QUETIAPINE FUMARATE 25MG TABLET PO SCH (20:50)
[2019-11-20] MEDS: ATORVASTATIN CALCIUM 40MG TABLET PO SCH (20:50)
[2019-11-20 23:53] LABS: CREATINE KINASE MB FRACTION 2.5 ng/mL (0.5-3.6)
[2019-11-21] VITALS: BP 108/53
[2019-11-21] MEDS: CARBIDOPA/LEVODOPA 10/100MG TABLET PO SCH ×7 (03:00→21:04)
[2019-11-21] MEDS: ENTACAPONE 200MG TABLET PO SCH ×8 (03:00→21:02)
[2019-11-21 04:00] VITALS: BP 132/67
[2019-11-21] MEDS: SODIUM CHLORIDE 0.9% INJ 3ML FLUSH IVF SCH ×3 (05:57→21:01)
[2019-11-21] MEDS: BLOOD SUGAR DIAGNOSTIC STRIP TEST SCH ×4 (06:26→21:12)
[2019-11-21] MEDS: LEVOTHYROXINE SODIUM 100MCG TABLET PO SCH (06:26)
[2019-11-21 07:29] LABS: CREATINE KINASE MB FRACTION 2.4 ng/mL (0.5-3.6)
[2019-11-21 08:00] VITALS: BP 127/67
[2019-11-21] MEDS: ASPIRIN 81MG TABLET PO SCH (08:35)
[2019-11-21] MEDS: METFORMIN HCL 500MG TABLET PO SCH ×2 (08:36→17:38)
[2019-11-21] MEDS: INSULIN LISPRO 100 UNITS/ML SUBCUT SCH ×4 (08:37→21:20)
[2019-11-21 12:00] VITALS: BP_SYST 112; BP_SYST 94; BP_DIAS 24; BP_DIAS 69
[2019-11-21] MEDS ORDERED: IOHEXOL-350 100 ML BOTTLE ONE (13:27)
[2019-11-21 16:00] VITALS: BP 165/59
[2019-11-21] MEDS ORDERED: POLYETHYLENE GLYCOL 3350 (17GM) 1 DOSE PACK PO PRN (17:15)
[2019-11-21] MEDS: POLYETHYLENE GLYCOL 3350 (17GM) 1 DOSE PACK PO SCH (19:35)
[2019-11-21 20:31] VITALS: BP 142/79
[2019-11-21] MEDS: BENZTROPINE MESYLATE 1MG TABLET PO SCH (21:01)
[2019-11-21] MEDS: QUETIAPINE FUMARATE 25MG TABLET PO SCH (21:01)
[2019-11-21] MEDS: ATORVASTATIN CALCIUM 40MG TABLET PO SCH (21:01)
[2019-11-22] MEDS: ENTACAPONE 200MG TABLET PO SCH ×7 (00:04→21:34)
[2019-11-22] MEDS: CARBIDOPA/LEVODOPA 10/100MG TABLET PO SCH ×7 (00:10→21:35)
[2019-11-22 00:23] VITALS: BP 93/57
[2019-11-22 04:00] VITALS: BP 178/145
[2019-11-22] MEDS: SODIUM CHLORIDE 0.9% INJ 3ML FLUSH IVF SCH ×3 (05:54→21:35)
[2019-11-22] MEDS: BLOOD SUGAR DIAGNOSTIC STRIP TEST SCH ×4 (06:44→20:44)
[2019-11-22] MEDS: LEVOTHYROXINE SODIUM 100MCG TABLET PO SCH (06:44)
[2019-11-22] MEDS: INSULIN LISPRO 100 UNITS/ML SUBCUT SCH ×4 (07:27→20:44)
[2019-11-22 08:00] VITALS: BP 90/62
[2019-11-22] MEDS: ASPIRIN 81MG TABLET PO SCH (09:10)
[2019-11-22] MEDS: METFORMIN HCL 500MG TABLET PO SCH ×2 (09:10→18:17)
[2019-11-22] MEDS: POLYETHYLENE GLYCOL 3350 (17GM) 1 DOSE PACK PO SCH (09:11)
[2019-11-22 12:00] VITALS: BP 145/67
[2019-11-22 16:00] VITALS: BP 128/68
[2019-11-22 20:00] VITALS: BP 115/41
[2019-11-22] MEDS: BENZTROPINE MESYLATE 1MG TABLET PO SCH (20:51)
[2019-11-22] MEDS: QUETIAPINE FUMARATE 25MG TABLET PO SCH (20:51)
[2019-11-22] MEDS: ATORVASTATIN CALCIUM 40MG TABLET PO SCH (20:51)
[2019-11-23] VITALS: BP 131/69
[2019-11-23] MEDS: ENTACAPONE 200MG TABLET PO SCH ×9 (00:50→21:19)
[2019-11-23] MEDS: CARBIDOPA/LEVODOPA 10/100MG TABLET PO SCH ×8 (00:50→21:19)
[2019-11-23 04:00] VITALS: BP 106/53
[2019-11-23] MEDS: LEVOTHYROXINE SODIUM 100MCG TABLET PO SCH (06:46)
[2019-11-23] MEDS: SODIUM CHLORIDE 0.9% INJ 3ML FLUSH IVF SCH ×3 (06:47→21:19)
[2019-11-23] MEDS: INSULIN LISPRO 100 UNITS/ML SUBCUT SCH ×4 (07:47→21:31)
[2019-11-23] MEDS: BLOOD SUGAR DIAGNOSTIC STRIP TEST SCH ×4 (07:47→21:02)
[2019-11-23] MEDS: METFORMIN HCL 500MG TABLET PO SCH ×2 (07:50→17:12)
[2019-11-23 07:55] VITALS: BP 96/52
[2019-11-23] MEDS: ASPIRIN 81MG TABLET PO SCH (08:23)
[2019-11-23] MEDS: POLYETHYLENE GLYCOL 3350 (17GM) 1 DOSE PACK PO SCH (08:23)
[2019-11-23] MEDS ORDERED: REGADENOSON 0.4 MG/5 ML IV ONE ×2 (09:00→11:57)
[2019-11-23 11:58] VITALS: BP 126/63
[2019-11-23] MEDS: ACETAMINOPHEN 325MG TABLET PO PRN (15:26)
[2019-11-23 16:03] VITALS: BP 116/66
[2019-11-23 20:00] VITALS: BP 116/65
[2019-11-23] MEDS: ATORVASTATIN CALCIUM 40MG TABLET PO SCH (21:19)
[2019-11-23] MEDS: QUETIAPINE FUMARATE 25MG TABLET PO SCH (21:19)
[2019-11-23] MEDS: BENZTROPINE MESYLATE 1MG TABLET PO SCH (21:19)
[2019-11-24] VITALS (7 sets, daily range): BP systolic 106–180; BP diastolic 57–96
[2019-11-24] MEDS: CARBIDOPA/LEVODOPA 10/100MG TABLET PO SCH ×7 (00:38→20:32)
[2019-11-24] MEDS: ENTACAPONE 200MG TABLET PO SCH ×7 (00:38→20:32)
[2019-11-24] MEDS: SODIUM CHLORIDE 0.9% INJ 3ML FLUSH IVF SCH ×3 (06:02→20:30)
[2019-11-24] MEDS: LEVOTHYROXINE SODIUM 100MCG TABLET PO SCH (06:34)
[2019-11-24] MEDS: BLOOD SUGAR DIAGNOSTIC STRIP TEST SCH ×4 (06:35→20:30)
[2019-11-24] MEDS ORDERED: REGADENOSON 0.4 MG/5 ML IV ONE (07:24)
[2019-11-24] MEDS: INSULIN LISPRO 100 UNITS/ML SUBCUT SCH ×4 (07:50→20:31)
[2019-11-24] MEDS: ASPIRIN 81MG TABLET PO SCH (08:49)
[2019-11-24] MEDS: METFORMIN HCL 500MG TABLET PO SCH ×2 (08:49→18:03)
[2019-11-24] MEDS: POLYETHYLENE GLYCOL 3350 (17GM) 1 DOSE PACK PO SCH (08:49)
[2019-11-24] MEDS: QUETIAPINE FUMARATE 25MG TABLET PO SCH (20:29)
[2019-11-24] MEDS: ATORVASTATIN CALCIUM 40MG TABLET PO SCH (20:30)
[2019-11-24] MEDS: BENZTROPINE MESYLATE 1MG TABLET PO SCH (20:30)
== END 2019-11-24 21:20 | disposition home or self-care (01) | DRG 206 ==
LOC: ER 02:30 → 6WST 08:57 → EDBEDREQ 09:05 → EDBEDREQTM 09:05 → ENRESERV 11:50 → 6WST 11-22 12:49
PROVIDERS: ADMIT Internal Medicine; ATTEND Internal Medicine
DX: M94.0 Chondrocostal junction syndrome [Tietze] (principal); E87.2 Acidosis; I25.10 Atherosclerotic heart disease of native coronary artery without angina pectoris; E11.9 Type 2 diabetes mellitus without complications; F41.1 Generalized anxiety disorder; E78.00 Pure hypercholesterolemia, unspecified; G20 Parkinson's disease; F41.9 Anxiety disorder, unspecified; I10 Essential (primary) hypertension; E89.0 Postprocedural hypothyroidism; Z95.5 Presence of coronary angioplasty implant and graft; Z86.73 Personal history of transient ischemic attack (TIA), and cerebral infarction without residual deficits; Z88.5 Allergy status to narcotic agent; Z79.2 Long term (current) use of antibiotics; Z79.82 Long term (current) use of aspirin; Z79.84 Long term (current) use of oral hypoglycemic drugs; Z79.899 Other long term (current) drug therapy; I25.2 Old myocardial infarction; Z85.038 Personal history of other malignant neoplasm of large intestine; Z86.718 Personal history of other venous thrombosis and embolism; Z79.01 Long term (current) use of anticoagulants; J47.9 Bronchiectasis, uncomplicated
CPT/HCPCS: 36415; 71045; 71275; 78452; 80053; 80061; 81003; 82550; 82553; 82962; 83036; 83880; 84439; 84443; 84484; 85025; 85379; 93005; 93017; 93306; 93970; 99285; A9500; J1200; J1815; J2785; Q9967

== ENCOUNTER 2021-12-07 13:31 | Inpatient (IN) | payer MEDICARE, MEDICAID ==
[~2021-12-07] VITALS: Ht 180.3 cm; Wt 73.5 kg
[~2021-12-07 13:31] MED LIST changes: -ASPI-1158 MT; +ASPI-1406 MT; +CARB-299 MT; -CARB1TAB9 MT; -LEVO500T2 MT; -METR500T MT; -OMEP20TA2 MT; +OMEP20TA23 MT
[2021-12-07] MEDS ORDERED: ASPIRIN 81MG TABLET PO ONE (15:15)
[2021-12-07] MEDS ORDERED: CARBIDOPA/LEVODOPA 25/100MG TABLET PO ONE (16:15)
[2021-12-07 17:01] LABS: BASOPHILS % 0.8 % (0.0-2.0); EOSINOPHILS % 2.5 % (0.0-5.0); HEMATOCRIT. 38.5 % (42.0-52.0); LYMPHOCYTES % 8.2 % (20.0-50.0); MEAN CORPUSCULAR HEMOGLOBIN 32.2 pg (28.0-32.0); MEAN CORPUSCULAR VOLUME 95.4 fL (80.0-94.0); MEAN PLATELET VOLUME 11.1 fl (7.4-10.4); MONOCYTES % 5.6 % (2.0-8.0); NEUTROPHILS % 82.9 % (40.0-76.0); PLATELET 126 x1000/uL (130-400); RED BLOOD CELL COUNT 4.04 mill/uL (4.7-6.1); RED CELL DISTRIBUTION WIDTH 14.7 % (11.6-14.6)
[2021-12-07] MEDS ORDERED: ASPIRIN 81MG TABLET PO NR (17:16)
[2021-12-07 17:17] LABS: CHLORIDE 105 mEq/L (98-107)
[2021-12-07] MEDS ORDERED: MAGNESIUM/ALUMINUM HYDROXIDE/SIMETHICONE 30ML UDC PO PRN (20:30)
[2021-12-07] MEDS ORDERED: DIPHENHYDRAMINE 50MG/ML VIAL IV PRN (20:30)
[2021-12-07] MEDS ORDERED: ACETAMINOPHEN 325MG TABLET PO PRN ×2 (20:30)
[2021-12-07] MEDS ORDERED: DEXTROSE 50% WATER 50ML SYRINGE IV PRN (20:30)
[2021-12-07] MEDS ORDERED: CLONIDINE 0.1MG TABLET PO PRN (20:30)
[2021-12-07] MEDS: METOPROLOL TARTRATE 25MG TABLET PO SCH (21:00)
[2021-12-07] MEDS: ATORVASTATIN CALCIUM 40MG TABLET PO SCH (21:00)
[2021-12-07] MEDS: BLOOD SUGAR DIAGNOSTIC STRIP TEST SCH (21:00)
[2021-12-07] MEDS: LISINOPRIL 10MG TABLET PO SCH (21:00)
[2021-12-07] MEDS: ENOXAPARIN 40MG/0.4ML SYR SUBCUT SCH (21:00)
[2021-12-07] MEDS: QUETIAPINE FUMARATE 50MG TABLET PO SCH (21:00)
[2021-12-07] MEDS: INSULIN LISPRO 100 UNITS/ML SUBCUT SCH (21:00)
[2021-12-07] MEDS: SODIUM CHLORIDE 0.9% INJ 3ML FLUSH IVF SCH (22:00)
[2021-12-07] MEDS: ENTACAPONE 200MG TABLET PO SCH (22:00)
[2021-12-07 23:30] VITALS: BP 151/51
[2021-12-07 23:35] VITALS: BP 144/56
[2021-12-08] MEDS ORDERED: MAGNESIUM 4 G PREMIX 100 ML IV NR (00:15)
[2021-12-08] MEDS: CARBIDOPA/LEVODOPA 10/100MG TABLET PO SCH ×7 (00:36→23:02)
[2021-12-08 04:00] VITALS: BP 120/78
[2021-12-08] MEDS: ENTACAPONE 200MG TABLET PO SCH ×3 (06:00→22:00)
[2021-12-08] MEDS ORDERED: SITA25TA3 MT (06:51)
[2021-12-08] MEDS: BLOOD SUGAR DIAGNOSTIC STRIP TEST SCH ×4 (07:10→21:00)
[2021-12-08] MEDS: INSULIN LISPRO 100 UNITS/ML SUBCUT SCH ×4 (07:40→21:00)
[2021-12-08 08:00] VITALS: BP 127/68
[2021-12-08] MEDS: ASPIRIN 81MG EC TABLET PO SCH (09:00)
[2021-12-08] MEDS: LISINOPRIL 10MG TABLET PO SCH ×2 (09:00→21:22)
[2021-12-08] MEDS: METOPROLOL TARTRATE 25MG TABLET PO SCH ×2 (09:00→21:21)
[2021-12-08] MEDS: SODIUM CHLORIDE 0.9% INJ 3ML FLUSH IVF SCH ×3 (10:13→22:00)
[2021-12-08] MEDS: METFORMIN HCL 500MG TABLET PO SCH ×2 (10:31→18:25)
[2021-12-08 12:00] VITALS: BP 133/58
[2021-12-08] MEDS: DEXT 5%/0.45% NACL 1000ML 1,000 ML IV SCH ×2 (14:30→22:20)
[2021-12-08 16:00] VITALS: BP 102/70
[2021-12-08 17:23] LABS: CREATINE KINASE MB FRACTION 2.6 ng/mL (0.5-3.6)
[2021-12-08 17:27] LABS: T4 FREE 1.21 ng/dL (0.76-1.46)
[2021-12-08 20:00] VITALS: BP 111/65
[2021-12-08] MEDS: ATORVASTATIN CALCIUM 40MG TABLET PO SCH (21:21)
[2021-12-08] MEDS: QUETIAPINE FUMARATE 50MG TABLET PO SCH (21:22)
[2021-12-08] MEDS: ZOLPIDEM TARTRATE 5MG TABLET PO PRN (21:22)
[2021-12-08] MEDS: ENOXAPARIN 40MG/0.4ML SYR SUBCUT SCH (21:23)
[2021-12-09] VITALS: BP 105/72
[2021-12-09 00:06] LABS: CREATINE KINASE MB FRACTION 2.1 ng/mL (0.5-3.6)
[2021-12-09 04:00] VITALS: BP 110/70
[2021-12-09] MEDS: CARBIDOPA/LEVODOPA 10/100MG TABLET PO SCH ×6 (04:36→21:34)
[2021-12-09] MEDS: SODIUM CHLORIDE 0.9% INJ 3ML FLUSH IVF SCH ×3 (05:32→22:06)
[2021-12-09] MEDS: ENTACAPONE 200MG TABLET PO SCH ×3 (05:32→22:00)
[2021-12-09] MEDS: INSULIN LISPRO 100 UNITS/ML SUBCUT SCH ×4 (05:55→21:00)
[2021-12-09] MEDS: BLOOD SUGAR DIAGNOSTIC STRIP TEST SCH ×4 (05:55→21:50)
[2021-12-09 06:47] LABS: CREATINE KINASE MB FRACTION 1.9 ng/mL (0.5-3.6)
[2021-12-09 08:00] VITALS: BP 99/60
[2021-12-09] MEDS: DEXT 5%/0.45% NACL 1000ML 1,000 ML IV SCH (08:58)
[2021-12-09] MEDS: METFORMIN HCL 500MG TABLET PO SCH ×2 (08:58→17:10)
[2021-12-09] MEDS: METOPROLOL TARTRATE 25MG TABLET PO SCH ×2 (09:00→21:34)
[2021-12-09] MEDS: LISINOPRIL 10MG TABLET PO SCH ×2 (09:00→21:33)
[2021-12-09] MEDS: ASPIRIN 81MG EC TABLET PO SCH (09:00)
[2021-12-09 12:00] VITALS: BP 117/60
[2021-12-09 16:00] VITALS: BP 98/62
[2021-12-09 20:00] VITALS: BP 111/56
[2021-12-09] MEDS: ZOLPIDEM TARTRATE 5MG TABLET PO PRN (21:33)
[2021-12-09] MEDS: QUETIAPINE FUMARATE 50MG TABLET PO SCH (21:33)
[2021-12-09] MEDS: ATORVASTATIN CALCIUM 40MG TABLET PO SCH (21:34)
[2021-12-09] MEDS: ENOXAPARIN 40MG/0.4ML SYR SUBCUT SCH (21:40)
[2021-12-10] VITALS: BP 99/67
[2021-12-10] MEDS: CARBIDOPA/LEVODOPA 10/100MG TABLET PO SCH ×8 (00:33→21:14)
[2021-12-10] MEDS: DEXT 5%/0.45% NACL 1000ML 1,000 ML IV SCH ×2 (01:08→14:20)
[2021-12-10] MEDS: LOPERAMIDE HCL 2MG CAPSULE PO PRN ×2 (02:16→09:02)
[2021-12-10 04:00] VITALS: BP 113/71
[2021-12-10] MEDS: SODIUM CHLORIDE 0.9% INJ 3ML FLUSH IVF SCH ×3 (05:45→21:56)
[2021-12-10] MEDS: ENTACAPONE 200MG TABLET PO SCH ×3 (05:45→21:56)
[2021-12-10] MEDS: BLOOD SUGAR DIAGNOSTIC STRIP TEST SCH ×4 (06:14→20:22)
[2021-12-10 08:00] VITALS: BP 120/47
[2021-12-10] MEDS: LISINOPRIL 10MG TABLET PO SCH ×2 (09:00→20:22)
[2021-12-10] MEDS: METFORMIN HCL 500MG TABLET PO SCH ×2 (09:01→17:34)
[2021-12-10] MEDS: METOPROLOL TARTRATE 25MG TABLET PO SCH ×2 (09:01→20:17)
[2021-12-10] MEDS: ONDANSETRON HCL 4MG/2ML INJ IV PRN ×2 (09:02→21:13)
[2021-12-10] MEDS: ASPIRIN 81MG EC TABLET PO SCH (09:02)
[2021-12-10] MEDS: INSULIN LISPRO 100 UNITS/ML SUBCUT SCH ×4 (09:14→20:22)
[2021-12-10 12:00] VITALS: BP 116/63
[2021-12-10 16:00] VITALS: BP 125/68
[2021-12-10 20:00] VITALS: BP 115/42
[2021-12-10] MEDS: ATORVASTATIN CALCIUM 40MG TABLET PO SCH (21:13)
[2021-12-10] MEDS: ENOXAPARIN 40MG/0.4ML SYR SUBCUT SCH (21:13)
[2021-12-10] MEDS: QUETIAPINE FUMARATE 50MG TABLET PO SCH (21:13)
[2021-12-11] VITALS (7 sets, daily range): BP systolic 101–160; BP diastolic 48–81
[2021-12-11] MEDS: DEXT 5%/0.45% NACL 1000ML 1,000 ML IV SCH (02:50)
[2021-12-11] MEDS: CARBIDOPA/LEVODOPA 10/100MG TABLET PO SCH ×8 (03:00→21:52)
[2021-12-11] MEDS: ENTACAPONE 200MG TABLET PO SCH ×3 (05:18→22:00)
[2021-12-11] MEDS: SODIUM CHLORIDE 0.9% INJ 3ML FLUSH IVF SCH ×3 (05:18→22:00)
[2021-12-11] MEDS: BLOOD SUGAR DIAGNOSTIC STRIP TEST SCH ×4 (06:51→21:00)
[2021-12-11] MEDS: INSULIN LISPRO 100 UNITS/ML SUBCUT SCH ×4 (07:50→21:00)
[2021-12-11] MEDS: ASPIRIN 81MG EC TABLET PO SCH (08:32)
[2021-12-11] MEDS: METFORMIN HCL 500MG TABLET PO SCH ×2 (08:32→18:38)
[2021-12-11] MEDS: LISINOPRIL 10MG TABLET PO SCH (08:38)
[2021-12-11] MEDS: METOPROLOL TARTRATE 25MG TABLET PO SCH ×2 (08:39→21:00)
[2021-12-11] MEDS ORDERED: LISINOPRIL 10MG TABLET PO NR (12:45)
[2021-12-11] MEDS: ENOXAPARIN 40MG/0.4ML SYR SUBCUT SCH (21:00)
[2021-12-11] MEDS: QUETIAPINE FUMARATE 50MG TABLET PO SCH (21:00)
[2021-12-11] MEDS: ATORVASTATIN CALCIUM 40MG TABLET PO SCH (21:00)
[2021-12-11] MEDS ORDERED: LORAZEPAM 2MG/ML CPJ IM NR (21:30)
[2021-12-11] MEDS: ONDANSETRON HCL 4MG/2ML INJ IV PRN (21:55)
[2021-12-12] VITALS: BP 94/55
[2021-12-12 04:00] VITALS: BP 124/64
[2021-12-12] MEDS: CARBIDOPA/LEVODOPA 10/100MG TABLET PO SCH ×4 (04:18→12:01)
[2021-12-12] MEDS: ENTACAPONE 200MG TABLET PO SCH (06:00)
[2021-12-12] MEDS: SODIUM CHLORIDE 0.9% INJ 3ML FLUSH IVF SCH (06:00)
[2021-12-12] MEDS: BLOOD SUGAR DIAGNOSTIC STRIP TEST SCH ×2 (07:42→12:32)
[2021-12-12] MEDS: INSULIN LISPRO 100 UNITS/ML SUBCUT SCH ×2 (07:50→12:32)
[2021-12-12] MEDS: METFORMIN HCL 500MG TABLET PO SCH (07:50)
[2021-12-12 08:00] VITALS: BP 100/60
[2021-12-12] MEDS: METOPROLOL TARTRATE 25MG TABLET PO SCH (09:00)
[2021-12-12] MEDS ORDERED: LISINOPRIL 10MG TABLET PO SCH (09:00)
[2021-12-12] MEDS: ASPIRIN 81MG EC TABLET PO SCH (09:00)
[2021-12-12 10:54] VITALS: BP 106/60
[2021-12-12 12:00] VITALS: BP 144/71
== END 2021-12-12 13:58 | DRG 206 ==
LOC: ER 13:31 → 6EST 15:54 → EDBEDREQ 15:58 → EDBEDREQTM 15:58 → ENRESERV 16:41 → 6EST 19:04 → 8WST 23:11 → 6EST 12-11 04:07
PROVIDERS: ADMIT Internal Medicine; ATTEND Internal Medicine
DX: M94.0 Chondrocostal junction syndrome [Tietze] (principal); I50.32 Chronic diastolic (congestive) heart failure; I42.9 Cardiomyopathy, unspecified; I25.10 Atherosclerotic heart disease of native coronary artery without angina pectoris; Z20.822 Contact with and (suspected) exposure to COVID-19; G20 Parkinson's disease; I11.0 Hypertensive heart disease with heart failure; E11.9 Type 2 diabetes mellitus without complications; E78.00 Pure hypercholesterolemia, unspecified; F41.1 Generalized anxiety disorder; I25.2 Old myocardial infarction; Z95.5 Presence of coronary angioplasty implant and graft; Z86.73 Personal history of transient ischemic attack (TIA), and cerebral infarction without residual deficits; Z88.1 Allergy status to other antibiotic agents; Z88.8 Allergy status to other drugs, medicaments and biological substances; Z83.3 Family history of diabetes mellitus; Z86.718 Personal history of other venous thrombosis and embolism; Z85.038 Personal history of other malignant neoplasm of large intestine; Z95.1 Presence of aortocoronary bypass graft
CPT/HCPCS: 36415; 71250; 74176; 80053; 80061; 82550; 82553; 82962; 83036; 83735; 83880; 84100; 84439; 84443; 84484; 85025; 85379; 87426; 93005; 93306; 93970; 99285; J1650; J1815; J2405; J3475

== ENCOUNTER 2022-06-19 11:38 | Emergency (ER) | payer MEDICARE, MEDICAID ==
[~2022-06-19] VITALS: Ht 170.2 cm; Wt 59.0 kg
[~2022-06-19 11:38] MED LIST changes: -BENZ1TAB7 MT; +BENZ1TAB78 MT; -CARB-299 MT; +CARB-324 MT; -FERR324T4 MT; -QUET25TA MT; +SITA25TA3 MT
[2022-06-19] MEDS ORDERED: LIDOCAINE HCL/PF 1% 10 MG/ML 5ML VIAL INFIL ONE (12:00)
[2022-06-19] MEDS ORDERED: BACITRACIN ZINC OINT UDPKT TOP ONE (12:00)
[2022-06-19] MEDS ORDERED: TETANUS, DIPHTHERIA, PERTUSSIS VAC/PF 0.5ML (>10YR OLD) IM ONE ×2 (12:00→15:00)
[2022-06-19] MEDS ORDERED: BACITRACIN ZINC OINT UDPKT TOP NR (14:30)
[2022-06-19] MEDS ORDERED: LIDOCAINE HCL/PF 1% 10 MG/ML 5ML VIAL INFIL NR (14:30)
[2022-06-19] MEDS ORDERED: CARBIDOPA/LEVODOPA 10/100MG TABLET PO ONE (15:45)
[2022-06-19] MEDS ORDERED: CARBIDOPA/LEVODOPA 10/100MG TABLET PO STA (16:03)
[2022-06-21 01:10] VITALS: BP 132/63
== END 2022-06-19 19:15 | disposition home or self-care (01) ==
LOC: ER 11:38
DX: S01.81XA Laceration without foreign body of other part of head, initial encounter (principal); I25.2 Old myocardial infarction; I10 Essential (primary) hypertension; E78.00 Pure hypercholesterolemia, unspecified; E11.9 Type 2 diabetes mellitus without complications; Z88.1 Allergy status to other antibiotic agents; Z88.5 Allergy status to narcotic agent; Z79.899 Other long term (current) drug therapy; Z86.39 Personal history of other endocrine, nutritional and metabolic disease; Z98.890 Other specified postprocedural states; W18.30XA Fall on same level, unspecified, initial encounter; Y93.89 Activity, other specified; Y92.89 Other specified places as the place of occurrence of the external cause; Y99.8 Other external cause status
CPT/HCPCS: 12013; 70450; 73080; 90471; 90715; 99285; J3490

== ENCOUNTER 2022-06-20 16:09 | Inpatient (IN) | payer MEDICARE, MEDICAID ==
[~2022-06-20] VITALS: Ht 170.2 cm; Wt 59.0 kg
[2022-06-20] MEDS ORDERED: ACETAMINOPHEN 325MG TABLET PO ONE (17:15)
[2022-06-20] MEDS ORDERED: KETOROLAC 60MG/2ML VIAL IM ONE (18:00)
[2022-06-20] MEDS ORDERED: CARBIDOPA/LEVODOPA 25/100MG TABLET PO ONE (18:00)
[2022-06-20] MEDS ORDERED: KETOROLAC 60MG/2ML VIAL IM NR (20:00)
[2022-06-20 20:37] LABS: HEMATOCRIT. 42.2 % (42.0-52.0); HEMOGLOBIN. 13.9 g/dL (14.0-18.0); MEAN CORPUSCULAR HEMOGLOBIN 31.6 pg (28.0-32.0); MEAN CORPUSCULAR VOLUME 96.2 fL (80.0-94.0); MEAN PLATELET VOLUME 11.3 fl (7.4-10.4); PLATELET 117 x1000/uL (130-400); RED BLOOD CELL COUNT 4.39 mill/uL (4.7-6.1); RED CELL DISTRIBUTION WIDTH 14.6 % (11.6-14.6)
[2022-06-20 20:48] LABS: CHLORIDE 106 mEq/L (98-107)
[2022-06-20 20:49] LABS: INR 1.1; PARTIAL THROMBOPLASTIN TIME 27.6 sec (23.4-31.0); PROTHROMBIN TIME 11.8 sec (9.6-11.0)
[2022-06-20 21:11] LABS: PLATELET ESTIMATE DECREASED
[2022-06-20] MEDS ORDERED: ONDANSETRON HCL 4MG/2ML INJ IV PRN (23:30)
[2022-06-20] MEDS ORDERED: GUAIFENESIN 200MG/10ML SUGAR FREE UDC PO PRN (23:30)
[2022-06-20] MEDS ORDERED: IPRATROPIUM/ALBUTEROL 0.5-3(2.5)MG/3ML NEB HHN PRN (23:30)
[2022-06-20] MEDS ORDERED: DOCUSATE SODIUM 100MG CAPSULE PO PRN (23:30)
[2022-06-20] MEDS ORDERED: ACETAMINOPHEN 325MG TABLET PO PRN ×2 (23:30)
[2022-06-20] MEDS ORDERED: CLONIDINE 0.1MG TABLET PO PRN (23:30)
[2022-06-20] MEDS ORDERED: MAGNESIUM/ALUMINUM HYDROXIDE/SIMETHICONE 30ML UDC PO PRN (23:30)
[2022-06-21] MEDS: MORPHINE SULFATE 2 MG/ML CPJ (NOT FOR IM USE) IV PRN ×2 (00:28→21:55)
[2022-06-21] MEDS ORDERED: NALOXONE HCL 0.4MG/ML VIAL IV PRN (01:15)
[2022-06-21 02:05] VITALS: BP 132/63
[2022-06-21 04:00] VITALS: BP 136/66
[2022-06-21] MEDS ORDERED: DEXTROSE 50% WATER 50ML SYRINGE IV PRN (06:15)
[2022-06-21] MEDS: CARBIDOPA/LEVODOPA 25/100MG TABLET PO SCH ×3 (06:19→21:28)
[2022-06-21] MEDS: SODIUM CHLORIDE 0.9% 1,000 ML IV SCH ×2 (06:19→13:05)
[2022-06-21 06:34] LABS: HEMATOCRIT. 39.6 % (42.0-52.0); HEMOGLOBIN. 13.3 g/dL (14.0-18.0); MEAN CORPUSCULAR HEMOGLOBIN 31.8 pg (28.0-32.0); MEAN CORPUSCULAR VOLUME 94.8 fL (80.0-94.0); PLATELET 106 x1000/uL (130-400); RED BLOOD CELL COUNT 4.18 mill/uL (4.7-6.1); RED CELL DISTRIBUTION WIDTH 14.6 % (11.6-14.6)
[2022-06-21 06:42] LABS: CHLORIDE 108 mEq/L (98-107)
[2022-06-21] MEDS: BLOOD SUGAR DIAGNOSTIC STRIP TEST SCH ×3 (06:46→21:55)
[2022-06-21 06:58] LABS: HDL CHOLESTEROL 43 mg/dL (40-59); LDL CHOLESTEROL 33 mg/dL (5-100); T4 FREE 0.93 ng/dL (0.76-1.46)
[2022-06-21 07:06] LABS: FOLIC ACID (FOLATE) SERUM 13.6 ng/mL (>5.38)
[2022-06-21] MEDS: INSULIN LISPRO 100 UNITS/ML SUBCUT SCH ×3 (07:50→21:00)
[2022-06-21 08:00] VITALS: BP 123/36
[2022-06-21] MEDS: PANTOPRAZOLE SODIUM 40 MG/VIAL IV SCH (10:50)
[2022-06-21 12:00] VITALS: BP 118/40
[2022-06-21] MEDS ORDERED: LIDOCAINE HCL/EPINEPHRINE 1%-EPI 1:100,000 30 ML VIAL INFIL ONE (15:50)
[2022-06-21] MEDS ORDERED: POLYMYXIN B SULFATE 500000 UNITS/VIAL ONE (15:50)
[2022-06-21] MEDS ORDERED: VANCOMYCIN HCL 1 GM/VIAL ONE (15:50)
[2022-06-21] MEDS ORDERED: CLINDAMYCIN IN 0.9 % SOD CHLOR 50 ML IV ONE (15:51)
[2022-06-21 16:00] VITALS: BP 80/49
[2022-06-21] MEDS ORDERED: DEXAMETHASONE 4MG/ML 1ML VIAL ONE (16:38)
[2022-06-21] MEDS ORDERED: PROPOFOL 200MG/20ML VIAL IV ONE (16:38)
[2022-06-21] MEDS ORDERED: ONDANSETRON HCL 4MG/2ML INJ ONE (16:38)
[2022-06-21] MEDS ORDERED: LIDOCAINE HCL 1% 10 MG/ML 10ML VIAL ONE (16:38)
[2022-06-21] MEDS ORDERED: MIDAZOLAM HCL 2 MG/2 ML VIAL ONE (16:39)
[2022-06-21] MEDS ORDERED: FENTANYL CITRATE/PF 50MCG/ML 2ML VIAL ONE (16:39)
[2022-06-21 16:48] LABS: PLATELET ESTIMATE DECREASED
[2022-06-21] MEDS ORDERED: ONDANSETRON HCL 4MG/2ML INJ IV PRN ×2 (17:15→18:00)
[2022-06-21] MEDS ORDERED: MEPERIDINE HCL/PF 25MG/ML CPJ IV PRN (17:15)
[2022-06-21] MEDS ORDERED: LABETALOL 5MG/ML SYR 20 MG/4 ML SYRINGE IV PRN (17:15)
[2022-06-21] MEDS ORDERED: HYDROMORPHONE HCL/PF 2MG/ML CPJ IV PRN (17:15)
[2022-06-21] MEDS ORDERED: HYDROCODONE/ACETAMINOPHEN 5/325MG TABLET PO PRN ×2 (18:00)
[2022-06-21] MEDS ORDERED: ENOXAPARIN 40MG/0.4ML SYR SUBCUT SCH (19:00)
[2022-06-22] VITALS: BP 101/48
[2022-06-22] MEDS: SODIUM CHLORIDE 0.9% 1,000 ML IV SCH ×2 (02:48→15:40)
[2022-06-22] MEDS: CARBIDOPA/LEVODOPA 25/100MG TABLET PO SCH ×3 (05:52→22:14)
[2022-06-22] MEDS: INSULIN LISPRO 100 UNITS/ML SUBCUT SCH ×4 (07:50→21:00)
[2022-06-22] MEDS: BLOOD SUGAR DIAGNOSTIC STRIP TEST SCH ×4 (07:50→21:00)
[2022-06-22 07:56] LABS: HEMOGLOBIN. 10.6 g/dL (14.0-18.0); MEAN CORPUSCULAR HEMOGLOBIN 32.3 pg (28.0-32.0); MEAN CORPUSCULAR VOLUME 94.7 fL (80.0-94.0); MEAN PLATELET VOLUME 11.4 fl (7.4-10.4); PLATELET 86 x1000/uL (130-400); RED BLOOD CELL COUNT 3.27 mill/uL (4.7-6.1); RED CELL DISTRIBUTION WIDTH 14.7 % (11.6-14.6)
[2022-06-22 08:00] VITALS: BP 86/40
[2022-06-22] MEDS: PANTOPRAZOLE SODIUM 40 MG/VIAL IV SCH (11:06)
[2022-06-22 12:00] VITALS: BP 87/60
[2022-06-22 16:00] VITALS: BP 88/74
[2022-06-22 17:28] LABS: PLATELET ESTIMATE DECREASED
[2022-06-22 18:20] LABS: CHLORIDE 110 mEq/L (98-107)
[2022-06-22 20:00] VITALS: BP 124/39
[2022-06-23 04:00] VITALS: BP 98/46
[2022-06-23] MEDS: SODIUM CHLORIDE 0.9% 1,000 ML IV SCH (04:48)
[2022-06-23] MEDS: CARBIDOPA/LEVODOPA 25/100MG TABLET PO SCH ×3 (06:03→22:18)
[2022-06-23] MEDS: BLOOD SUGAR DIAGNOSTIC STRIP TEST SCH ×4 (07:03→21:32)
[2022-06-23 07:48] LABS: HEMATOCRIT. 30.1 % (42.0-52.0); HEMOGLOBIN. 10.2 g/dL (14.0-18.0); MEAN CORPUSCULAR VOLUME 95.1 fL (80.0-94.0); MEAN PLATELET VOLUME 12.4 fl (7.4-10.4); PLATELET 83 x1000/uL (130-400); RED BLOOD CELL COUNT 3.17 mill/uL (4.7-6.1); RED CELL DISTRIBUTION WIDTH 14.8 % (11.6-14.6)
[2022-06-23] MEDS: INSULIN LISPRO 100 UNITS/ML SUBCUT SCH ×4 (07:50→21:00)
[2022-06-23 08:00] VITALS: BP 98/46
[2022-06-23] MEDS: PANTOPRAZOLE SODIUM 40 MG/VIAL IV SCH (09:36)
[2022-06-23] MEDS ORDERED: ENOX40DI8 SUBCUT (10:28)
[2022-06-23 11:04] LABS: TOTAL IRON BINDING CAPACITY 160 ug/dL (250-450)
[2022-06-23] MEDS: ENOXAPARIN 40MG/0.4ML SYR SUBCUT SCH (11:05)
[2022-06-23 12:00] VITALS: BP 140/61
[2022-06-23 14:57] LABS: PLATELET ESTIMATE DECREASED
[2022-06-23 16:00] VITALS: BP 101/59
[2022-06-23 20:00] VITALS: BP 144/58
[2022-06-24] MEDS: CARBIDOPA/LEVODOPA 25/100MG TABLET PO SCH ×3 (06:34→21:43)
[2022-06-24 06:52] LABS: CHLORIDE 109 mEq/L (98-107)
[2022-06-24] MEDS: BLOOD SUGAR DIAGNOSTIC STRIP TEST SCH ×4 (06:52→21:46)
[2022-06-24 07:10] LABS: HEMATOCRIT. 30.6 % (42.0-52.0); HEMOGLOBIN. 10.4 g/dL (14.0-18.0); MEAN CORPUSCULAR HEMOGLOBIN 31.9 pg (28.0-32.0); MEAN CORPUSCULAR VOLUME 94.2 fL (80.0-94.0); MEAN PLATELET VOLUME 11.1 fl (7.4-10.4); PLATELET 92 x1000/uL (130-400); RED BLOOD CELL COUNT 3.25 mill/uL (4.7-6.1); RED CELL DISTRIBUTION WIDTH 14.7 % (11.6-14.6)
[2022-06-24] MEDS: INSULIN LISPRO 100 UNITS/ML SUBCUT SCH ×4 (07:50→21:00)
[2022-06-24 08:00] VITALS: BP 134/32
[2022-06-24] MEDS: PANTOPRAZOLE SODIUM 40 MG/VIAL IV SCH (08:33)
[2022-06-24] MEDS: ENOXAPARIN 40MG/0.4ML SYR SUBCUT SCH (08:33)
[2022-06-24 11:52] LABS: PLATELET ESTIMATE DECREASED
[2022-06-24 12:00] VITALS: BP 106/81
[2022-06-24 16:00] VITALS: BP 113/35
[2022-06-24 20:00] VITALS: BP 95/37
[2022-06-25] VITALS (7 sets, daily range): BP systolic 93–124; BP diastolic 20–70
[2022-06-25] MEDS ORDERED: SODIUM CHLORIDE 0.9% 1,000 ML IV SCH (00:30)
[2022-06-25] MEDS: BLOOD SUGAR DIAGNOSTIC STRIP TEST SCH ×3 (06:48→21:00)
[2022-06-25] MEDS: CARBIDOPA/LEVODOPA 25/100MG TABLET PO SCH ×3 (06:48→21:14)
[2022-06-25] MEDS: INSULIN LISPRO 100 UNITS/ML SUBCUT SCH ×3 (07:50→21:00)
[2022-06-25] MEDS: ENOXAPARIN 40MG/0.4ML SYR SUBCUT SCH (09:00)
[2022-06-25] MEDS: PANTOPRAZOLE SODIUM 40 MG/VIAL IV SCH (09:31)
[2022-06-26] VITALS: BP 126/21
[2022-06-26 04:00] VITALS: BP 105/16
[2022-06-26 06:42] LABS: BASOPHILS % 0.5 % (0.0-2.0); EOSINOPHILS % 4.3 % (0.0-5.0); HEMATOCRIT. 31.6 % (42.0-52.0); HEMOGLOBIN. 10.5 g/dL (14.0-18.0); LYMPHOCYTES % 8.8 % (20.0-50.0); MEAN CORPUSCULAR HEMOGLOBIN 31.5 pg (28.0-32.0); MEAN CORPUSCULAR VOLUME 94.5 fL (80.0-94.0); MEAN PLATELET VOLUME 11.5 fl (7.4-10.4); MONOCYTES % 7.3 % (2.0-8.0); NEUTROPHILS % 79.1 % (40.0-76.0); PLATELET 144 x1000/uL (130-400); RED BLOOD CELL COUNT 3.34 mill/uL (4.7-6.1); RED CELL DISTRIBUTION WIDTH 14.8 % (11.6-14.6)
[2022-06-26 06:51] LABS: CHLORIDE 107 mEq/L (98-107)
[2022-06-26] MEDS: CARBIDOPA/LEVODOPA 25/100MG TABLET PO SCH (07:00)
[2022-06-26] MEDS: BLOOD SUGAR DIAGNOSTIC STRIP TEST SCH (07:03)
[2022-06-26] MEDS: INSULIN LISPRO 100 UNITS/ML SUBCUT SCH (07:41)
[2022-06-26 08:00] VITALS: BP 109/31
[2022-06-26] MEDS: PANTOPRAZOLE SODIUM 40 MG/VIAL IV SCH (08:57)
[2022-06-26] MEDS: ENOXAPARIN 40MG/0.4ML SYR SUBCUT SCH (08:59)
[2022-06-26 11:48] VITALS: BP 99/34
[2022-06-26 12:00] VITALS: BP 99/34
[2022-06-26 16:00] VITALS: BP 131/66
[2022-06-26] MEDS ORDERED: NALOXONE HCL 0.4MG/ML VIAL IV PRN (17:00)
[2022-06-26] MEDS ORDERED: CARBIDOPA/LEVODOPA 25/100MG TABLET PO SCH (17:15)
[2022-06-27] MEDS ORDERED: FAMOTIDINE 20MG TABLET PO SCH (09:00)
== END 2022-06-26 18:04 | DRG 480 ==
LOC: ER 16:37 → MICUSO 22:14 → EDBEDREQ 22:35 → EDBEDREQTM 22:35 → 6EST 06-21 01:03
PROVIDERS: ADMIT Internal Medicine; ATTEND Internal Medicine
PROC: 0QS636Z Reposition Right Upper Femur with Intramedullary Internal Fixation Device, Percutaneous Approach (ICD-10-PCS; principal; 2022-06-21)
DX: S72.101A Unspecified trochanteric fracture of right femur, initial encounter for closed fracture (principal); E43 Unspecified severe protein-calorie malnutrition; G20 Parkinson's disease; E78.5 Hyperlipidemia, unspecified; E11.9 Type 2 diabetes mellitus without complications; I10 Essential (primary) hypertension; W05.0XXA Fall from non-moving wheelchair, initial encounter; Z99.3 Dependence on wheelchair; D63.8 Anemia in other chronic diseases classified elsewhere; D69.6 Thrombocytopenia, unspecified; E88.09 Other disorders of plasma-protein metabolism, not elsewhere classified; I25.10 Atherosclerotic heart disease of native coronary artery without angina pectoris; S01.21XA Laceration without foreign body of nose, initial encounter; E78.00 Pure hypercholesterolemia, unspecified; E03.9 Hypothyroidism, unspecified; S09.90XA Unspecified injury of head, initial encounter; K21.9 Gastro-esophageal reflux disease without esophagitis; Z79.84 Long term (current) use of oral hypoglycemic drugs; Z82.49 Family history of ischemic heart disease and other diseases of the circulatory system; Z85.038 Personal history of other malignant neoplasm of large intestine; Z86.73 Personal history of transient ischemic attack (TIA), and cerebral infarction without residual deficits; Z95.1 Presence of aortocoronary bypass graft; Y93.89 Activity, other specified; Y92.89 Other specified places as the place of occurrence of the external cause; Y99.8 Other external cause status; Z88.2 Allergy status to sulfonamides; I25.2 Old myocardial infarction; Z79.82 Long term (current) use of aspirin
CPT/HCPCS: 36415; 73080; 73502; 73552; 76000; 80053; 80061; 82607; 82728; 82746; 82962; 83036; 83540; 83550; 83605; 84145; 84439; 84443; 85025; 86850; 86900; 86920; 87426; 93970; 97110; 97162; 97166; 97530; 99285; C9113; J1100; J1650; J1815; J1885; J2250; J2270; J2405; J2704; J3010; J3370; J3490; J7030; C1713

== ENCOUNTER 2025-01-09 17:01 | Inpatient (IN) | payer MEDICARE, MEDICAID ==
[~2025-01-09] VITALS: Ht 175.3 cm; Wt 83.0 kg
[~2025-01-09 17:01] MED LIST changes: +ENOX40DI8 SUBCUT; +LEVO50TA8 PO; +MIDO5TAB4 PO; +PIPE3.3772 IV
[2025-01-09] MEDS: SODIUM CHLORIDE 0.9% (SEPSIS BOLUS) IV ONE (17:53)
[2025-01-09] MEDS: VANCOMYCIN 1G PREMIX 200 ML IV ONE (17:53)
[2025-01-09 17:56] LABS: HEMATOCRIT. 34.4 % (42.0-52.0); HEMOGLOBIN. 11.2 g/dL (14.0-18.0); MEAN PLATELET VOLUME 10.9 fl (7.4-10.4); PLATELET 175 x1000/uL (130-400); RED BLOOD CELL COUNT 3.55 mill/uL (4.7-6.1); RED CELL DISTRIBUTION WIDTH 16.7 % (11.6-14.6)
[2025-01-09 18:06] LABS: INR 1.2
[2025-01-09 18:10] LABS: CREATININE 0.6 mg/dL (0.6-1.3); UREA NITROGEN BLOOD 11 mg/dL (9-23)
[2025-01-09 18:12] LABS: ASPARTATE AMINOTRANSFERASE 17 IU/L (<34); BILIRUBIN DIRECT 0.8 mg/dL (<=3.0); BILIRUBIN TOTAL 1.8 mg/dL (0.1-1.0)
[2025-01-09 18:13] LABS: PROTEIN TOTAL 6.9 g/dL (6.0-8.3)
[2025-01-09 18:24] LABS: CLARITY URINE CLEAR (CLEAR); COLOR URINE YELLOW (YELLOW); GLUCOSE URINE NEGATIVE (NEGATIVE); KETONES URINE NEGATIVE (NEGATIVE); LEUKOCYTE ESTERASE URINE 1+ (NEGATIVE); NITRITE URINE NEGATIVE (NEGATIVE); OCCULT BLOOD URINE NEGATIVE (NEGATIVE); PH URINE 7.5 (4.5-8.0); PROTEIN URINE NEGATIVE (NEGATIVE); SPECIFIC GRAVITY URINE 1.015 (1.005-1.030); UROBILINOGEN URINE 1.0 E.U./dL (0.2-1.0)
[2025-01-09 18:48] LABS: INFLUENZA TYPE A Presumptive Negative (Pres. Neg.)
[2025-01-09 18:49] LABS: INFLUENZA TYPE B Presumptive Negative (Pres. Neg.)
[2025-01-09 18:50] LABS: RBC URINE NONE SEEN /hpf (0-2)
[2025-01-09 18:50] LABS: RESPIRATORY SYNCYTIAL VIRUS Not Detected (Not Detectd)
[2025-01-09 18:51] LABS: BACTERIA URINE TRACE; SQUAMOUS EPITHELIAL CELL URINE NONE SEEN /lpf (RARE/1+); YEAST URINE 1+
[2025-01-09 19:12] LABS: EOSINOPHILS % MANUAL 2.0 % (0.0-5.0); LYMPHOCYTES % MANUAL 15.0 % (20.0-50.0); MONOCYTES % MANUAL 7.0 % (2.0-8.0); NEUTROPHILS % MANUAL 76.0 % (45.0-75.0); PLATELET ESTIMATE NORMAL
[2025-01-09 21:09] LABS: BG BASE EXCESS 0.1 mmol/L (-2.0-3.0); BG CARBOXYHEMOGLOBIN 0.5 % (0.5-1.5); BG DEOXYHEMOGLOBIN 1.3 % (0.0-5.0); BG FRACTION INSPIRED OXYGEN 32; BG HCO3 ACT 25.7 mmol/L (21.0-28.0); BG METHEMOGLOBIN 0.2 % (0.5-1.5); BG OXYGEN SATURATION 98.7 % (94.0-98.0); BG OXYHEMOGLOBIN 98.0 % (94.0-98.0); BG PCO2 45.3 mmHg (35.0-48.0); BG PH 7.371 (7.350-7.450); BG PO2 146.0 mmHg (83.0-108.0); BG SAMPLE SITE LEFT BRACHIAL; BG TOTAL HEMOGLOBIN 11.1 g/dL (13.5-17.5); BG VENT MODE NASAL CANNULA
[2025-01-09] MEDS ORDERED: MEROPENEM 1G/100ML 100 ML IV SCH (22:00)
[2025-01-10] VITALS (10 sets, daily range): BP systolic 88–126; BP diastolic 46–87; PULSE 58–75; RESP 18–23; TEMP 36.0844–36.8; O2SAT 92–99
[2025-01-10] MEDS ORDERED: ONDANSETRON HCL 4MG TABLET PO PRN (00:15)
[2025-01-10] MEDS ORDERED: CARBIDOPA/LEVODOPA 25/100MG TABLET PO SCH (00:15)
[2025-01-10] MEDS: LEVOTHYROXINE SODIUM 50MCG TABLET PO SCH (06:32)
[2025-01-10] MEDS ORDERED: CEFTRIAXONE 1,000 MG in DEXT 5% WATER 100 ML IV SCH ×2 (07:00)
[2025-01-10] MEDS ORDERED: LEVOTHYROXINE SODIUM 50MCG TABLET PO SCH (07:20)
[2025-01-10] MEDS: BLOOD SUGAR DIAGNOSTIC STRIP TEST SCH (07:44)
[2025-01-10] MEDS: INSULIN LISPRO 100 UNITS/ML SUBCUT SCH (07:50)
[2025-01-10 08:14] LABS: HEMATOCRIT. 32.1 % (42.0-52.0); HEMOGLOBIN. 10.4 g/dL (14.0-18.0); MEAN PLATELET VOLUME 10.7 fl (7.4-10.4); PLATELET 145 x1000/uL (130-400); RED BLOOD CELL COUNT 3.31 mill/uL (4.7-6.1); RED CELL DISTRIBUTION WIDTH 16.2 % (11.6-14.6)
[2025-01-10 08:30] LABS: CREATININE 0.5 mg/dL (0.6-1.3)
[2025-01-10 08:31] LABS: UREA NITROGEN BLOOD 15 mg/dL (9-23)
[2025-01-10] MEDS: FOLIC ACID 1MG TABLET PEG SCH (08:58)
[2025-01-10] MEDS: ASPIRIN 81MG EC TABLET PO SCH (08:59)
[2025-01-10] MEDS: BENZTROPINE MESYLATE 1MG TABLET PO SCH (08:59)
[2025-01-10] MEDS ORDERED: ASPIRIN 81MG TABLET PO SCH (09:00)
[2025-01-10] MEDS ORDERED: FOLIC ACID 1MG TABLET PO SCH (09:00)
[2025-01-10] MEDS ORDERED: METOPROLOL TARTRATE 25MG TABLET PO SCH (09:00)
[2025-01-10] MEDS ORDERED: MIDODRINE HCL 5MG TABLET PO SCH (09:00)
[2025-01-10] MEDS: METOPROLOL TARTRATE 25MG TABLET PO SCH ×2 (09:00→20:39)
[2025-01-10] MEDS ORDERED: BENZTROPINE MESYLATE 1MG TABLET PO SCH (09:00)
[2025-01-10] MEDS: MIDODRINE HCL 5MG TABLET PO SCH (09:00)
[2025-01-10] MEDS: CEFTRIAXONE 1GM/50ML 50ML IV SCH (09:04)
[2025-01-10] MEDS: ENOXAPARIN 40MG/0.4ML SYR SUBCUT SCH (09:05)
[2025-01-10] MEDS: ATORVASTATIN CALCIUM 40MG TABLET PO SCH (09:05)
[2025-01-10] MEDS: MIDODRINE HCL 5MG TABLET PO NR (11:43)
[2025-01-10] MEDS: DEXTROSE 50% WATER 50ML SYRINGE IV PRN (20:57)
[2025-01-10] MEDS ORDERED: ATORVASTATIN CALCIUM 40MG TABLET PO SCH (21:00)
[2025-01-11] VITALS (13 sets, daily range): BP systolic 88–125; BP diastolic 39–93; PULSE 65–93; RESP 13–31; TEMP 36.3–37.3; O2SAT 91–100
[2025-01-11 04:35] LABS: LYMPHOCYTES % MANUAL 6.0 % (20.0-50.0); MONOCYTES % MANUAL 5.0 % (2.0-8.0); NEUTROPHILS % MANUAL 89.0 % (45.0-75.0); PLATELET ESTIMATE NORMAL
[2025-01-11 06:04] LABS: CREATININE 0.6 mg/dL (0.6-1.3); UREA NITROGEN BLOOD 19 mg/dL (9-23)
[2025-01-11 06:13] LABS: FOLIC ACID (FOLATE) SERUM > 20.00 ng/mL (>5.38); VITAMIN B12 SERUM 971 pg/mL (211-911)
[2025-01-11 06:15] LABS: HEMATOCRIT. 33.9 % (42.0-52.0); HEMOGLOBIN. 10.8 g/dL (14.0-18.0); MEAN PLATELET VOLUME 11.2 fl (7.4-10.4); PLATELET 175 x1000/uL (130-400); RED BLOOD CELL COUNT 3.42 mill/uL (4.7-6.1); RED CELL DISTRIBUTION WIDTH 16.5 % (11.6-14.6)
[2025-01-11 13:01] LABS: BAND% 11.0 % (1.0-6.0); LYMPHOCYTES % MANUAL 2.0 % (20.0-50.0); MONOCYTES % MANUAL 6.0 % (2.0-8.0); NEUTROPHILS % MANUAL 81.0 % (45.0-75.0)
[2025-01-11 13:02] LABS: PLATELET ESTIMATE NORMAL
[2025-01-11] MEDS: MIDODRINE HCL 5MG TABLET PO SCH (18:25)
[2025-01-12] VITALS (12 sets, daily range): BP systolic 96–155; BP diastolic 42–92; PULSE 58–92; RESP 17–29; TEMP 36.6–37.8; O2SAT 95–100
[2025-01-12 06:40] LABS: HEMATOCRIT. 34.6 % (42.0-52.0); HEMOGLOBIN. 11.1 g/dL (14.0-18.0); MEAN PLATELET VOLUME 11.9 fl (7.4-10.4); PLATELET 186 x1000/uL (130-400); RED BLOOD CELL COUNT 3.51 mill/uL (4.7-6.1); RED CELL DISTRIBUTION WIDTH 16.6 % (11.6-14.6)
[2025-01-12 07:03] LABS: CREATININE 0.7 mg/dL (0.6-1.3); UREA NITROGEN BLOOD 22 mg/dL (9-23)
[2025-01-12] MEDS: ACETAMINOPHEN 325MG TABLET PO PRN (21:50)
[2025-01-13] VITALS (13 sets, daily range): BP systolic 75–151; BP diastolic 46–124; PULSE 55–77; RESP 16–26; TEMP 36.6–37.1; O2SAT 96–100
[2025-01-13] MEDS: VANCOMYCIN 1.5GM/250ML IV NR (05:09)
[2025-01-13 05:38] LABS: PLATELET 170 x1000/uL (130-400); RED BLOOD CELL COUNT 3.22 mill/uL (4.7-6.1); RED CELL DISTRIBUTION WIDTH 16.1 % (11.6-14.6)
[2025-01-13 06:56] LABS: BAND% 28.0 % (1.0-6.0); EOSINOPHILS % MANUAL 2.0 % (0.0-5.0); LYMPHOCYTES % MANUAL 6.0 % (20.0-50.0); MONOCYTES % MANUAL 1.0 % (2.0-8.0); NEUTROPHILS % MANUAL 63.0 % (45.0-75.0); PLATELET ESTIMATE NORMAL
[2025-01-13] MEDS: PIPERACILLIN/TAZO 3.375G/50ML 50 ML IV SCH (07:11)
[2025-01-13] MEDS: SODIUM CHLORIDE 3% FOR INH 4ML NEB INH SCH (08:29)
[2025-01-13] MEDS ORDERED: IOHEXOL-300 100 ML BOTTLE ONE (10:26)
[2025-01-13] MEDS ORDERED: MEROPENEM 1,000 MG in SODIUM CHLORIDE 0.9% 100 ML IV SCH (15:15)
[2025-01-13] MEDS: MEROPENEM 1G/100ML IV SCH (17:24)
[2025-01-13] MEDS: IPRATROPIUM/ALBUTEROL 0.5-3(2.5)MG/3ML NEB HHN SCH (19:54)
[2025-01-13] MEDS ORDERED: VANCOMYCIN 750MG/150ML (BAXTER) IV SCH (21:00)
[2025-01-13] MEDS: GUAIFENESIN 600MG ER TABLET PO SCH (22:00)
[2025-01-14] VITALS (16 sets, daily range): BP systolic 71–131; BP diastolic 33–105; PULSE 67–129; RESP 16–51; TEMP 36.1–36.7; O2SAT 94–100
[2025-01-14] MEDS: ACETYLCYSTEINE 200MG/ML 20% VIAL 4ML INH SCH (02:40)
[2025-01-15] VITALS (16 sets, daily range): BP systolic 79–167; BP diastolic 38–122; PULSE 65–100; RESP 13–31; TEMP 36.3–37.6; O2SAT 95–100
[2025-01-15 07:24] LABS: CREATININE 0.7 mg/dL (0.6-1.3); UREA NITROGEN BLOOD 24 mg/dL (9-23)
[2025-01-15 07:53] LABS: HEMATOCRIT. 33.4 % (42.0-52.0); HEMOGLOBIN. 10.7 g/dL (14.0-18.0); MEAN PLATELET VOLUME 11.0 fl (7.4-10.4); PLATELET 231 x1000/uL (130-400); RED BLOOD CELL COUNT 3.45 mill/uL (4.7-6.1); RED CELL DISTRIBUTION WIDTH 16.7 % (11.6-14.6)
[2025-01-15] MEDS: POTASSIUM CHLORIDE 20MEQ/PACKET PO NR (12:30)
[2025-01-15] MEDS: MIDODRINE HCL 5MG TABLET PO PRN (23:10)
[2025-01-16] VITALS (16 sets, daily range): BP systolic 92–117; BP diastolic 28–99; PULSE 59–170; RESP 0–21; TEMP 36.2–36.9; O2SAT 97–100
[2025-01-16] MEDS: CARBIDOPA/LEVODOPA 10/100MG TABLET PO SCH (00:23)
[2025-01-16 08:10] LABS: HEMATOCRIT. 31.7 % (42.0-52.0); HEMOGLOBIN. 10.1 g/dL (14.0-18.0); MEAN PLATELET VOLUME 10.5 fl (7.4-10.4); PLATELET 202 x1000/uL (130-400); RED BLOOD CELL COUNT 3.25 mill/uL (4.7-6.1); RED CELL DISTRIBUTION WIDTH 16.8 % (11.6-14.6)
[2025-01-16 08:33] LABS: T4 FREE 1.32 ng/dL (0.89-1.76)
[2025-01-16 08:37] LABS: CREATININE 0.5 mg/dL (0.6-1.3); UREA NITROGEN BLOOD 22 mg/dL (9-23)
[2025-01-16 16:55] LABS: LYMPHOCYTES % MANUAL 5.0 % (20.0-50.0); MONOCYTES % MANUAL 5.0 % (2.0-8.0); NEUTROPHILS % MANUAL 90.0 % (45.0-75.0); PLATELET ESTIMATE NORMAL
[2025-01-16 18:37] LABS: EOSINOPHILS % MANUAL 1.0 % (0.0-5.0); LYMPHOCYTES % MANUAL 2.0 % (20.0-50.0); MONOCYTES % MANUAL 8.0 % (2.0-8.0); NEUTROPHILS % MANUAL 89.0 % (45.0-75.0); PLATELET ESTIMATE NORMAL
[2025-01-17] VITALS (15 sets, daily range): BP systolic 84–137; BP diastolic 48–76; PULSE 63–94; RESP 13–30; TEMP 36.5–37.8; O2SAT 92–100
[2025-01-17] MEDS: GUAIFENESIN-DM 200MG-20MG/10ML UDC PO PRN (00:42)
[2025-01-18] VITALS (9 sets, daily range): BP systolic 100–140; BP diastolic 41–90; PULSE 65–82; RESP 18–24; TEMP 35.6–36.5; O2SAT 95–98
[2025-01-18 06:53] LABS: CREATININE 0.4 mg/dL (0.6-1.3); UREA NITROGEN BLOOD 13 mg/dL (9-23)
[2025-01-18 07:01] LABS: HEMATOCRIT. 29.6 % (42.0-52.0); HEMOGLOBIN. 9.4 g/dL (14.0-18.0); MEAN PLATELET VOLUME 11.0 fl (7.4-10.4); PLATELET 197 x1000/uL (130-400); RED BLOOD CELL COUNT 3.04 mill/uL (4.7-6.1); RED CELL DISTRIBUTION WIDTH 16.4 % (11.6-14.6)
[2025-01-18 18:44] LABS: EOSINOPHILS % MANUAL 2.0 % (0.0-5.0); LYMPHOCYTES % MANUAL 3.0 % (20.0-50.0); MONOCYTES % MANUAL 20.0 % (2.0-8.0); NEUTROPHILS % MANUAL 75.0 % (45.0-75.0); PLATELET ESTIMATE NORMAL
[2025-01-19] VITALS (7 sets, daily range): BP systolic 86–117; BP diastolic 33–73; PULSE 60–88; RESP 16–19; TEMP 33.3–37.1; O2SAT 95–98
[2025-01-19 07:25] LABS: CREATININE 0.4 mg/dL (0.6-1.3); UREA NITROGEN BLOOD 14 mg/dL (9-23)
[2025-01-19 07:26] LABS: HEMATOCRIT. 30.3 % (42.0-52.0); HEMOGLOBIN. 9.7 g/dL (14.0-18.0); MEAN PLATELET VOLUME 10.7 fl (7.4-10.4); PLATELET 193 x1000/uL (130-400); RED BLOOD CELL COUNT 3.13 mill/uL (4.7-6.1); RED CELL DISTRIBUTION WIDTH 16.6 % (11.6-14.6)
[2025-01-19] MEDS: LEVOTHYROXINE SODIUM 75MCG TABLET PO SCH (09:08)
[2025-01-19] MEDS: IPRATROPIUM/ALBUTEROL 0.5-3(2.5)MG/3ML NEB HHN SCH (20:08)
[2025-01-19 21:40] LABS: BAND% 2.0 % (1.0-6.0); EOSINOPHILS % MANUAL 1.0 % (0.0-5.0); LYMPHOCYTES % MANUAL 11.0 % (20.0-50.0); MONOCYTES % MANUAL 13.0 % (2.0-8.0); NEUTROPHILS % MANUAL 73.0 % (45.0-75.0); PLATELET ESTIMATE NORMAL
[2025-01-19] MEDS: MEROPENEM 1G/100ML 100 ML IV SCH (22:07)
[2025-01-20] VITALS (8 sets, daily range): BP systolic 94–129; BP diastolic 41–70; PULSE 62–89; RESP 16–20; TEMP 36–37.1; O2SAT 95–98
[2025-01-20] MEDS: ACETYLCYSTEINE 200MG/ML 20% VIAL 4ML INH SCH (09:35)
[2025-01-20 10:48] LABS: HEMATOCRIT. 31.9 % (42.0-52.0); HEMOGLOBIN. 10.0 g/dL (14.0-18.0); MEAN PLATELET VOLUME 11.0 fl (7.4-10.4); PLATELET 171 x1000/uL (130-400); RED BLOOD CELL COUNT 3.25 mill/uL (4.7-6.1); RED CELL DISTRIBUTION WIDTH 16.9 % (11.6-14.6)
[2025-01-20 11:10] LABS: CREATININE 0.5 mg/dL (0.6-1.3); UREA NITROGEN BLOOD 11 mg/dL (9-23)
[2025-01-20 14:42] LABS: BAND% 2.0 % (1.0-6.0); EOSINOPHILS % MANUAL 3.0 % (0.0-5.0); LYMPHOCYTES % MANUAL 10.0 % (20.0-50.0); MONOCYTES % MANUAL 9.0 % (2.0-8.0); NEUTROPHILS % MANUAL 76.0 % (45.0-75.0)
[2025-01-20 14:43] LABS: PLATELET ESTIMATE NORMAL
[2025-01-21] VITALS (10 sets, daily range): BP systolic 91–125; BP diastolic 42–87; PULSE 57–100; RESP 16–19; TEMP 35.9–36.7; O2SAT 97–100
[2025-01-21 07:24] LABS: HEMATOCRIT. 31.5 % (42.0-52.0); HEMOGLOBIN. 10.1 g/dL (14.0-18.0); MEAN PLATELET VOLUME 11.2 fl (7.4-10.4); PLATELET 182 x1000/uL (130-400); RED BLOOD CELL COUNT 3.24 mill/uL (4.7-6.1); RED CELL DISTRIBUTION WIDTH 16.5 % (11.6-14.6)
[2025-01-21 07:34] LABS: CREATININE 0.5 mg/dL (0.6-1.3)
[2025-01-21 07:36] LABS: UREA NITROGEN BLOOD 12 mg/dL (9-23)
[2025-01-21 21:28] LABS: BAND% 2.0 % (1.0-6.0); EOSINOPHILS % MANUAL 1.0 % (0.0-5.0); LYMPHOCYTES % MANUAL 13.0 % (20.0-50.0); MONOCYTES % MANUAL 2.0 % (2.0-8.0); NEUTROPHILS % MANUAL 82.0 % (45.0-75.0); PLATELET ESTIMATE NORMAL
[2025-01-22] VITALS (9 sets, daily range): BP systolic 101–120; BP diastolic 49–60; PULSE 58–69; RESP 16–19; TEMP 36.1–36.7; O2SAT 92–100
[2025-01-22 19:10] LABS: HEMATOCRIT. 33.9 % (42.0-52.0); HEMOGLOBIN. 10.9 g/dL (14.0-18.0); MEAN PLATELET VOLUME 11.4 fl (7.4-10.4); PLATELET 213 x1000/uL (130-400); RED BLOOD CELL COUNT 3.50 mill/uL (4.7-6.1); RED CELL DISTRIBUTION WIDTH 16.7 % (11.6-14.6)
[2025-01-22 19:25] LABS: CREATININE 0.5 mg/dL (0.6-1.3); UREA NITROGEN BLOOD 10 mg/dL (9-23)
[2025-01-23] VITALS (13 sets, daily range): BP systolic 85–130; BP diastolic 25–70; PULSE 55–75; RESP 16–20; TEMP 36.1–36.8; O2SAT 95–100
[2025-01-23 00:06] LABS: EOSINOPHILS % MANUAL 6.0 % (0.0-5.0); LYMPHOCYTES % MANUAL 10.0 % (20.0-50.0); MONOCYTES % MANUAL 6.0 % (2.0-8.0); NEUTROPHILS % MANUAL 78.0 % (45.0-75.0); PLATELET ESTIMATE NORMAL
[2025-01-23 06:32] LABS: HEMATOCRIT. 32.1 % (42.0-52.0); HEMOGLOBIN. 10.4 g/dL (14.0-18.0); MEAN PLATELET VOLUME 11.7 fl (7.4-10.4); PLATELET 198 x1000/uL (130-400); RED BLOOD CELL COUNT 3.32 mill/uL (4.7-6.1); RED CELL DISTRIBUTION WIDTH 16.3 % (11.6-14.6)
[2025-01-23] MEDS ORDERED: SODIUM CHLORIDE 0.9% 1,000 ML IV SCH (10:45)
[2025-01-23] MEDS: DEXT 5%/0.9% NACL 1,000 ML IV SCH (11:02)
[2025-01-23] MEDS: MIDODRINE HCL 5MG TABLET PO SCH (13:46)
[2025-01-23 14:11] LABS: BAND% 3.0 % (1.0-6.0); EOSINOPHILS % MANUAL 2.0 % (0.0-5.0); LYMPHOCYTES % MANUAL 14.0 % (20.0-50.0); MONOCYTES % MANUAL 1.0 % (2.0-8.0); NEUTROPHILS % MANUAL 80.0 % (45.0-75.0); PLATELET ESTIMATE NORMAL
[2025-01-23] MEDS: SODIUM CHLORIDE 0.9% (SEPSIS BOLUS) IV ONE (14:17)
[2025-01-23] MEDS ORDERED: NOREPINEPHRINE 8 MG in DEXT 5% WATER 242 ML IV PRN (15:45)
[2025-01-24] VITALS (9 sets, daily range): BP systolic 92–112; BP diastolic 59–87; PULSE 58–88; RESP 18–20; TEMP 36.1–37; O2SAT 92–99
[2025-01-24 06:39] LABS: CREATININE 0.5 mg/dL (0.6-1.3); UREA NITROGEN BLOOD 10 mg/dL (9-23)
[2025-01-24 07:08] LABS: HEMATOCRIT. 32.5 % (42.0-52.0); HEMOGLOBIN. 10.5 g/dL (14.0-18.0); MEAN PLATELET VOLUME 11.6 fl (7.4-10.4); PLATELET 243 x1000/uL (130-400); RED BLOOD CELL COUNT 3.38 mill/uL (4.7-6.1); RED CELL DISTRIBUTION WIDTH 16.5 % (11.6-14.6)
[2025-01-24] MEDS: IRON SUCROSE COMPLEX 100 MG/5 ML ML IV SCH ×2 (11:37→16:30)
[2025-01-24 13:15] LABS: BAND% 1.0 % (1.0-6.0); EOSINOPHILS % MANUAL 1.0 % (0.0-5.0); LYMPHOCYTES % MANUAL 8.0 % (20.0-50.0); MONOCYTES % MANUAL 4.0 % (2.0-8.0); NEUTROPHILS % MANUAL 86.0 % (45.0-75.0); PLATELET ESTIMATE NORMAL
[2025-01-25] VITALS: BP 105/60; PULSE 92; RESP 18; TEMP 36.7; O2SAT 97
[2025-01-25 04:00] VITALS: BP 139/89; PULSE 77; RESP 18; TEMP 36.9; O2SAT 98
[2025-01-25 06:31] LABS: CREATININE 0.4 mg/dL (0.6-1.3); UREA NITROGEN BLOOD 9 mg/dL (9-23)
[2025-01-25 06:43] LABS: HEMATOCRIT. 29.5 % (42.0-52.0); HEMOGLOBIN. 9.4 g/dL (14.0-18.0); MEAN PLATELET VOLUME 11.3 fl (7.4-10.4); PLATELET 213 x1000/uL (130-400); RED BLOOD CELL COUNT 3.03 mill/uL (4.7-6.1); RED CELL DISTRIBUTION WIDTH 16.9 % (11.6-14.6)
[2025-01-25 08:00] VITALS: BP 125/55; PULSE 56; RESP 18; TEMP 36; O2SAT 98
[2025-01-25 16:00] VITALS: BP 115/34; PULSE 62; RESP 18; TEMP 37.1; O2SAT 97
[2025-01-25 18:31] LABS: EOSINOPHILS % MANUAL 2.0 % (0.0-5.0); LYMPHOCYTES % MANUAL 10.0 % (20.0-50.0); MONOCYTES % MANUAL 15.0 % (2.0-8.0); NEUTROPHILS % MANUAL 73.0 % (45.0-75.0); PLATELET ESTIMATE NORMAL
[2025-01-25 20:00] VITALS: BP 139/80; PULSE 78; RESP 20; TEMP 37; O2SAT 98
[2025-01-26] VITALS: BP 129/80; PULSE 78; RESP 20; TEMP 36.7; O2SAT 98
[2025-01-26 04:00] VITALS: BP 145/66; PULSE 88; RESP 20; TEMP 36.9; O2SAT 98
[2025-01-26 06:25] LABS: HEMATOCRIT. 31.9 % (42.0-52.0); HEMOGLOBIN. 10.2 g/dL (14.0-18.0); MEAN PLATELET VOLUME 11.0 fl (7.4-10.4); PLATELET 221 x1000/uL (130-400); RED BLOOD CELL COUNT 3.28 mill/uL (4.7-6.1); RED CELL DISTRIBUTION WIDTH 16.7 % (11.6-14.6)
[2025-01-26 06:36] LABS: CREATININE 0.4 mg/dL (0.6-1.3); UREA NITROGEN BLOOD 6 mg/dL (9-23)
[2025-01-26 08:00] VITALS: BP 99/40; PULSE 53; RESP 20; TEMP 37; O2SAT 98
[2025-01-26] MEDS: PANTOPRAZOLE SODIUM 40 MG/VIAL IV SCH (10:18)
[2025-01-26 12:00] VITALS: BP 110/77; PULSE 63; RESP 20; TEMP 36.7; O2SAT 99
[2025-01-26 16:00] VITALS: BP 133/71; PULSE 64; RESP 18; TEMP 36.5; O2SAT 99
[2025-01-26 20:00] VITALS: BP 121/56; PULSE 60; RESP 19; TEMP 36.3; O2SAT 97
[2025-01-27] VITALS: BP 120/50; PULSE 58; RESP 18; TEMP 36.4; O2SAT 98
[2025-01-27 04:00] VITALS: BP 139/49; PULSE 60; RESP 17; TEMP 36.3; O2SAT 100
[2025-01-27 08:00] VITALS: BP 119/49; PULSE 64; RESP 18; TEMP 36.6; O2SAT 97
[2025-01-27 12:00] VITALS: BP 142/47; PULSE 61; RESP 18; TEMP 36.7; O2SAT 96
[2025-01-27 15:07] LABS: EOSINOPHILS % MANUAL 2.0 % (0.0-5.0); LYMPHOCYTES % MANUAL 18.0 % (20.0-50.0); MONOCYTES % MANUAL 9.0 % (2.0-8.0); NEUTROPHILS % MANUAL 71.0 % (45.0-75.0); PLATELET ESTIMATE NORMAL
[2025-01-27 16:00] VITALS: BP 134/54; PULSE 58; RESP 18; TEMP 36.8; O2SAT 100
[2025-01-27 20:00] VITALS: BP 138/60; PULSE 60; RESP 17; TEMP 36.6; O2SAT 100
[2025-01-28] VITALS: BP 128/58; PULSE 65; RESP 18; TEMP 36.7; O2SAT 100
[2025-01-28 04:00] VITALS: BP 136/62; PULSE 64; RESP 17; TEMP 36.8; O2SAT 100
[2025-01-28 08:00] VITALS: BP 130/58; PULSE 68; RESP 16; TEMP 36.7; O2SAT 99
[2025-01-28 12:00] VITALS: BP 129/60; PULSE 64; RESP 16; TEMP 36.6; O2SAT 99
[2025-01-28] MEDS: MIDODRINE HCL 5MG TABLET PO SCH (14:11)
[2025-01-28 16:00] VITALS: BP 128/53; PULSE 62; RESP 18; TEMP 36.8; O2SAT 100
[2025-01-29] VITALS: BP 124/53; PULSE 50; RESP 18; TEMP 36.3; O2SAT 100
[2025-01-29 04:00] VITALS: BP 125/63; PULSE 57; RESP 18; TEMP 36.2; O2SAT 99
[2025-01-29 08:00] VITALS: BP 137/54; PULSE 51; RESP 16; TEMP 36; O2SAT 100
[2025-01-29] MEDS: ENOXAPARIN 80MG/0.8ML SYR SUBCUT SCH (10:24)
[2025-01-29 12:00] VITALS: BP 97/46; PULSE 53; RESP 16; TEMP 36.5; O2SAT 100
[2025-01-29 12:41] LABS: TRIGLYCERIDE 79.0 mg/dL (0-150)
[2025-01-29 12:42] LABS: LDL CHOLESTEROL 31.0 mg/dL (5-100)
[2025-01-29 16:00] VITALS: BP 124/49; PULSE 61; RESP 17; TEMP 36.5; O2SAT 100
[2025-01-29 20:00] VITALS: BP 123/60; PULSE 61; RESP 18; TEMP 36.2; O2SAT 100
[2025-01-30] VITALS: BP 136/46; PULSE 63; RESP 18; TEMP 36.3; O2SAT 94
[2025-01-30 04:00] VITALS: BP 116/35; PULSE 69; RESP 18; TEMP 36.7; O2SAT 97
[2025-01-30 08:00] VITALS: BP 132/62; PULSE 78; RESP 18; TEMP 36.5; O2SAT 97
[2025-01-30 12:00] VITALS: BP 128/59; PULSE 86; RESP 20; TEMP 36.6; O2SAT 95
[2025-01-30 16:00] VITALS: BP 123/60; PULSE 95; RESP 20; TEMP 36.3; O2SAT 97
[2025-01-30 18:41] LABS: BASOPHILS % 0.9 % (0.0-2.0); EOSINOPHILS % 2.7 % (0.0-5.0); HEMATOCRIT. 30.2 % (42.0-52.0); HEMOGLOBIN. 9.7 g/dL (14.0-18.0); LYMPHOCYTES % 10.7 % (20.0-50.0); MEAN PLATELET VOLUME 10.4 fl (7.4-10.4); MONOCYTES % 5.0 % (2.0-8.0); NEUTROPHILS % 80.7 % (40.0-76.0); PLATELET 220 x1000/uL (130-400); RED BLOOD CELL COUNT 3.13 mill/uL (4.7-6.1); RED CELL DISTRIBUTION WIDTH 16.6 % (11.6-14.6)
[2025-01-30 19:04] LABS: CREATININE 0.4 mg/dL (0.6-1.3); UREA NITROGEN BLOOD < 5 mg/dL (9-23)
[2025-01-30 20:00] VITALS: BP 138/94; PULSE 61; RESP 17; TEMP 36.3; O2SAT 100
[2025-01-30] MEDS: MIDODRINE HCL 5MG TABLET PO SCH (22:00)
[2025-01-31 04:00] VITALS: BP 98/41; PULSE 59; RESP 17; TEMP 36.1; O2SAT 100
[2025-01-31 08:00] VITALS: BP 100/60; PULSE 60; RESP 20; TEMP 36.4; O2SAT 100
[2025-01-31] MEDS ORDERED: APIX5TAB MT (10:16)
[2025-01-31] MEDS ORDERED: LEVO75TA7 PO (10:16)
[2025-01-31 12:00] VITALS: BP 102/54; PULSE 53; RESP 18; TEMP 36.6; O2SAT 100
[2025-01-31] MEDS: KCL 20MEQ/100ML PREMIX 100 ML IV SCH ×2 (14:47→18:55)
[2025-01-31 16:00] VITALS: BP 119/67; PULSE 59; RESP 18; TEMP 36.4; O2SAT 100
[2025-01-31 20:00] VITALS: BP 118/39; PULSE 66; RESP 18; TEMP 35.7; O2SAT 100
[2025-02-01 04:00] VITALS: BP 123/79; PULSE 55; RESP 18; TEMP 35.7; O2SAT 96
[2025-02-01 08:00] VITALS: BP 115/50; PULSE 68; RESP 16; TEMP 36.1; O2SAT 100
[2025-02-01] MEDS: ASPIRIN 81MG TABLET PO SCH (12:45)
[2025-02-01 15:09] VITALS: BP 111/35; PULSE 57; RESP 16; TEMP 98.7
== END 2025-02-01 15:42 | DRG 871 ==
LOC: ER 17:01 → 6WST 20:06 → EDBEDREQTM 20:12 → EDBEDREQ 20:12 → ENRESERV 21:02 → 5EST 01-10 11:39 → 8WST 01-17 23:53 → 8EST 01-26 15:44
PROVIDERS: ADMIT Internal Medicine; ATTEND Internal Medicine
DX: A41.9 Sepsis, unspecified organism (principal); G93.41 Metabolic encephalopathy; J18.9 Pneumonia, unspecified organism; I31.39 Other pericardial effusion (noninflammatory); I47.20 Ventricular tachycardia, unspecified; I82.411 Acute embolism and thrombosis of right femoral vein; L89.156 Pressure-induced deep tissue damage of sacral region; I42.2 Other hypertrophic cardiomyopathy; L89.326 Pressure-induced deep tissue damage of left buttock; R13.12 Dysphagia, oropharyngeal phase; R62.7 Adult failure to thrive; J44.0 Chronic obstructive pulmonary disease with (acute) lower respiratory infection; T83.511A Infection and inflammatory reaction due to indwelling urethral catheter, initial encounter; N39.0 Urinary tract infection, site not specified; I50.42 Chronic combined systolic (congestive) and diastolic (congestive) heart failure; D53.9 Nutritional anemia, unspecified; E03.9 Hypothyroidism, unspecified; I11.0 Hypertensive heart disease with heart failure; E11.51 Type 2 diabetes mellitus with diabetic peripheral angiopathy without gangrene; G20.A1 Parkinson's disease without dyskinesia, without mention of fluctuations; F02.80 Dementia in other diseases classified elsewhere, unspecified severity, without behavioral disturbance, psychotic disturbance, mood disturbance, and anxiety; Z20.822 Contact with and (suspected) exposure to COVID-19; I48.0 Paroxysmal atrial fibrillation; I25.10 Atherosclerotic heart disease of native coronary artery without angina pectoris; K21.9 Gastro-esophageal reflux disease without esophagitis; E61.1 Iron deficiency; Z53.20 Procedure and treatment not carried out because of patient's decision for unspecified reasons; E78.00 Pure hypercholesterolemia, unspecified; Z74.01 Bed confinement status; Z95.1 Presence of aortocoronary bypass graft; Z79.84 Long term (current) use of oral hypoglycemic drugs; Z88.1 Allergy status to other antibiotic agents; Z88.5 Allergy status to narcotic agent; Z86.73 Personal history of transient ischemic attack (TIA), and cerebral infarction without residual deficits; Y83.8 Other surgical procedures as the cause of abnormal reaction of the patient, or of later complication, without mention of misadventure at the time of the procedure; Y92.89 Other specified places as the place of occurrence of the external cause; Z68.27 Body mass index [BMI] 27.0-27.9, adult
CPT/HCPCS: 36415; 36600; 71045; 71260; 73630; 74230; 80048; 80061; 80076; 81003; 82140; 82375; 82607; 82728; 82746; 82805; 82962; 83036; 83540; 83550; 83605; 83735; 84134; 84145; 84439; 84443; 84481; 85025; 85027; 85044; 87077; 87186; 87420; 87426; 87804; 92610; 92611; 93005; 93306; 93923; 93970; 94070; 94640; 94664; 94760; 96365; 99291; A4606; A4615; J0696; J1650; J1815; J2185; J2470; J2543; J3373; J3480; J7030; J7042; J7608; Q9967